=== PATIENT | female | born 1960 | race Caucasian/White ===

== ENCOUNTER → 2023-08-19 11:34 | Outpatient (REF) | payer MEDICARE, SELFPAY | LOC: HWRAD 11:34 | PROVIDERS: ATTENDING PHYSICIAN Internal Medicine Critical Care Medicine; FAMILY PHYSICIAN Internal Medicine | DX: R91.8 Other nonspecific abnormal finding of lung field (principal) | CPT/HCPCS: 71250 ==

== ENCOUNTER → 2023-10-28 06:22 | Day surgery (SDC) | payer MEDICARE, SELFPAY ==
[2023-10-28 07:38] LABS: Glucose - Point of Care 80 mg/dl (70-99)
== END ==
LOC: GI 06:22
PROVIDERS: ATTENDING PHYSICIAN Internal Medicine Gastroenterology
DX: Z12.11 Encounter for screening for malignant neoplasm of colon (principal); Z86.010 Personal history of colon polyps; K64.8 Other hemorrhoids; K57.30 Diverticulosis of large intestine without perforation or abscess without bleeding
CPT/HCPCS: G0105; 82962

== ENCOUNTER → 2023-11-03 08:40 | Outpatient (REF) | payer MEDICARE, SELFPAY | LOC: RAD 08:40 | PROVIDERS: ATTENDING PHYSICIAN Internal Medicine Gastroenterology; FAMILY PHYSICIAN Internal Medicine | DX: R11.0 Nausea (principal) | CPT/HCPCS: 76700; 78226; A9537 ==

== ENCOUNTER → 2023-12-27 09:52 | Outpatient (REF) | payer MEDICARE, SELFPAY | LOC: HWWDC 09:52 | PROVIDERS: ATTENDING PHYSICIAN Internal Medicine | DX: Z12.31 Encounter for screening mammogram for malignant neoplasm of breast (principal) | CPT/HCPCS: 77063; 77067 ==

== ENCOUNTER → 2024-02-23 08:54 | Outpatient (REF) | payer MEDICARE, SELFPAY | LOC: HWRAD 08:54 | PROVIDERS: ATTENDING PHYSICIAN Internal Medicine Critical Care Medicine; FAMILY PHYSICIAN Internal Medicine | DX: R91.8 Other nonspecific abnormal finding of lung field (principal) | CPT/HCPCS: 71250 ==

== ENCOUNTER → 2024-03-06 08:34 | Outpatient (REF) | payer MEDICARE, SELFPAY | LOC: HWRAD 08:34 | PROVIDERS: ATTENDING PHYSICIAN Internal Medicine | DX: R93.89 Abnormal findings on diagnostic imaging of other specified body structures (principal); E07.9 Disorder of thyroid, unspecified | CPT/HCPCS: 76536 ==

== ENCOUNTER → 2024-03-14 13:18 | Outpatient (REF) | payer MEDICARE, SELFPAY ==
[2024-03-14 13:44] VITALS: BP 142/87; BP_SYST 75
== END ==
LOC: RADI 13:18
PROVIDERS: ATTENDING PHYSICIAN Internal Medicine
DX: E04.1 Nontoxic single thyroid nodule (principal)
CPT/HCPCS: 88173; 10005

== ENCOUNTER 2024-09-03 23:07 | Inpatient (IN) | payer MEDICARE, SELFPAY ==
[2024-09-03] VITALS (9 sets, daily range): BP systolic 157–171; BP diastolic 78–98; BMI 36.8
[2024-09-03 16:52] LABS: % Basophils 0.4 % (0-2); % Eosinophils 1.6 % (0-6); % Immature Granulocytes 0.3 % (0-0.5); % Lymphocytes 25.4 % (20.5-51.1); % Monocytes 7.7 % (1.7-9.3); % Neutrophils 64.6 % (42.2-75.2); Absolute Eosinophils 0.2 10^3/uL (0-0.7); Absolute Lymphocytes 2.3 10^3/uL (1.2-3.4); Absolute Monocytes 0.7 10^3/uL (0.1-0.6); Absolute Neutrophils 5.9 10^3/uL (1.4-6.5); Hematocrit 39.1 % (37.0-47.0); Hemoglobin 12.6 g/dL (12.0-16.0); Mean Corp Hgb Conc. 32.2 g/dL (33.0-37.0); Mean Corpuscular Hgb 28.4 pg (27.0-31.0); Mean Corpuscular Volume 88.3 fL (81.0-99.0); Mean Platelet Volume 10.2 fL (7.4-10.4); Nucleated Red Blood Cells % 0 %; Platelet Count 263 10^3/uL (130-400); Red Blood Cell Count 4.43 10^6/uL (4.20-5.40); Red Cell Dist. Width 14.4 % (11.5-14.5); White Blood Cell Count 9.1 10^3/uL (4.8-10.8)
[2024-09-03 17:04] LABS: ALT (SGPT) 16 U/L (0-35); AST (SGOT) 20 U/L (14-36); Albumin 4.6 g/dl (3.5-5.0); Alkaline Phosphatase 84 U/L (38-126); Blood Urea Nitrogen 21 mg/dl (7-17); Calcium 9.4 mg/dl (8.4-10.2); Carbon Dioxide 32 mmol/L (22-30); Chloride 98 mmol/L (98-107); Glucose 96 mg/dl (70-99); Potassium 4.6 mmol/L (3.5-5.1); Sodium 140 mmol/L (135-145); Total Bilirubin 0.7 mg/dl (0.2-1.3); Total Protein 7.3 g/dl (6.3-8.2); eGFR 45.92
[2024-09-03 17:15] LABS: NT-proBNP 270 pg/ml; Troponin I < 0.012 ng/ml
[2024-09-03 17:39] LABS: COVID-19 Antigen Negative (Negative)
[2024-09-03] MEDS: DUONEB 3 ML INH (18:37)
[2024-09-03] MEDS: DECADRON 10 MG PO (18:37)
[2024-09-03 19:11] LABS: D-Dimer 0.42 ug/mlFEU (0.00-0.50)
--- NOTE | 2024-09-03 20:09 | ED.GENMED ---
History of Present Illness
General
Chief Complaint: Breathing Problem
Source: patient
Exam Limitations: none
Time Seen by Provider: 09/03/24 17:49
Nursing documentation reviewed up to this point in time: agreed with
History of Present Illness
History of Present Illness:
Patient to ED with complaint of SOB. States she developed cold symtoms on 07/13. Treated with OTC meds. SHe was then re-evaluated in Jul. States she started to feel better but cough remained. Progressively worsening SOB and worening cough. NOw
having difficulty with aDL's' due to SOB. Denies any cp/pressure. Denies fever/chills. Brought self to ED for eval. H asthma and COPD. SHe does not use home O2. Has albuterol inhaler which she typically uses as 'rescue' but reports now using
frequently throughout the day
Past History
Past History
ED Past Medical History: Asthma, COPD, GERD, HTN and NIDDM
Review of Systems
Review of Systems
Allergies reviewed?: Yes
All Other Systems: ROS reviewed and negative except as documented in HPI and ROS
Constitutional: Reports fatigue
EENT: Reports no symptoms
Respiratory: Reports cough and trouble breathing
Cardiac: Reports no symptoms
ABD/GI: Reports no symptoms
: Reports no symptoms
Musculoskeletal: Reports no symptoms
Skin: Reports no symptoms
Neurological: Reports weakness
Psychiatric: Reports no symptoms
Phy Exam
General Physical Exam
General Presentation: mild distress
General age: appears stated age
General Skin: warm and dry
General Habitus: normal
Cardiovascular Exam
Cardiovascular Exam: regular rate/rhythm and no edema
Pulmonary Exam
Pulmonary Exam: chest non tender and decreased breath sounds
Oxygen Status: oxygen 2 liters via NC (PUlse ox 91% RA at rest, 86% RA wtih ambulation)
Gastrointestinal Exam
Gastrointestinal Exam: normal bowel sounds, non tender, soft, no organomegaly, non distended and no cva tenderness
Musculoskeletal Exam
Musculoskeletal Exam: full ROM and neuro vasc intact
Skin Exam
Skin Exam: normal color, warm/dry and no rash
Psychiatric Exam
Psychiatric Exam: normal mood/affect
Scores
Heart Failure Risk
Heart Failure Risk Score: Not Applicable
Course
Orders/Labs/Results
Orders:
Orders
09/03/24 16:02
Electrocardiogram (*1) Urgent
Reason for Study: Other
Other Reason for Exam: Respiratory Distress
CR Chest - 2 Views Urgent
Comment:
Reason For Exam: respiratory distress
09/03/24 16:18
COVID-19 Antigen Urgent
Source: Nasal Swab
Complete Blood Count/With Diff Urgent
Comprehensive Metabolic Panel Urgent
NT-proBNP Urgent
Troponin I Urgent
Influenza A+B Rapid Molecular Urgent
GANESH Source: Nasal Swab
Specimen Description:
09/03/24 17:58
Dexamethasone Pf [Decadron] 10 mg PO NOW STA
Ipratropium/Albuterol Sulfate [Duoneb] 3 ml INH R NOW STA
09/03/24 18:36
D-Dimer Urgent
09/03/24 19:06
RSV [Respiratory Syncytial Virus] Urgent
GANESH Source: Nasal Swab
Specimen Description:
Date Specimen was Collected: 09/03/24
Time Specimen was Collected: 19:02
09/03/24 19:13
Oxygen Therapy [O2 Therapy] [RESP] Urgent
Nasal Cannula Liter Flow: 2 LPM
Titrate/Wean O2 to maintain O2 sat greater than (%): 93
Contact provider if nasal cannula O2 requirement > 6 liters: Yes
09/03/24 22:49
Admit/Transfer Patient As Directed
Co-Sign Provider:
Level of Care: Inpatient admission
Assign to:: Medical/Surgical
Physician / Group: [email or web address]
Diagnosis: AE COPD
Reason for Hospitalization: AE COPD
Expected length of stay greater than two midnights?: Yes
ELOS- Estimated Length of Stay in days: 3
I certify the patient meets the requirements for IP care: Yes
09/03/24 22:51
Code Status As Directed
Resuscitation Status: Full Code
09/03/24 22:57
Procalcitonin Routine
PCT Algorithmm Indication: Respiratory
09/04/24 00:44
Dextrose 50%-Water [Dextrose 50% Syringe] 12.5 grams IV [id number] PRN
Glucagon [GlucaGen] 1 mg IM PRN PRN
Ipratropium/Albuterol Sulfate [Duoneb] 3 ml INH R Q4HPRN PRN
Lorazepam [Ativan] 0.5 mg PO DAILYPRN PRN
09/04/24 00:44
Activity As Directed
Activity Level: With Assistance
Bedside Glucose Monitoring As Directed
Frequency: AC&HS
Additional Instructions:: Change to q6h if pt on TPN, tube feeding or not eating
Intake/ Output As Directed
Frequency: Per unit guidelines
Vital Signs As Directed
Frequency: Per unit guidelines
Copd Education [RESP] Routine
DX Deep Vein Thrombosis Video Routine
09/04/24 05:35
Basic Metabolic Panel IN AM
Complete Blood Count/With Diff IN AM
Glycohemoglobin (HgbA1c) IN AM
09/04/24 Breakfast
Cholesterol Lowering
At Your Request: Full Participation
Does patient need a safe tray?: No
Cholesterol Lowering: Sodium, 2 Gram
1999 CHO Diabetic
Dexamethasone Sod Phosphate [Decadron] 4 mg IV Q12H
09/04/24 07:30
Insulin Aspart Corrective Low [Novolog Flexpen-Low Resistance] See Protocol SC AC
09/04/24 08:00
Atorvastatin [Lipitor] 40 mg PO DAILY
Carvedilol [Coreg] 25 mg PO BID
Clopidogrel Bisulfate [Plavix] 75 mg PO DAILY
Ipratropium/Albuterol Sulfate [Duoneb] 3 ml INH R QID
Losartan [Cozaar] 100 mg PO DAILY
METFORMIN HCl [Glucophage] 500 mg PO BID AT 0800,1700
Pantoprazole [Protonix] 40 mg PO BID
09/04/24 18:00
Enoxaparin Sodium [Lovenox] 40 mg SC QPM
09/04/24 22:00
Escitalopram Oxalate [Lexapro] 5 mg PO HS
09/05/24 08:00
Furosemide [Lasix] 20 mg PO Q48H
09/08/24 06:00
Alendronate Sodium [Fosamax] 70 mg PO SA@0600
Abnormal Lab Results
09/03/24
16:18
MCHC 32.2 L g/dL
(33.0-37.0)
Absolute Monos (auto) 0.7 H 10^3/uL
(0.1-0.6)
Carbon Dioxide 32 H mmol/L
(22-30)
BUN 21 H mg/dl
(7-17)
Creatinine 1.3 H mg/dL
(0.6-1.0)
09/03/24 16:18
09/03/24 16:18
Vital Signs
Initial and Last Documented VS:
Initial Vital Signs
Temp Pulse BP Pulse Ox
99.3 F 85 171/98 92
09/03/24 16:00 09/03/24 16:00 09/03/24 16:00 09/03/24 16:00
Last Documented Vital Signs
Temp Pulse Resp BP Pulse Ox
98.1 F 87 16 176/94 95
09/05/24 07:48 09/05/24 11:49 09/05/24 11:49 09/05/24 07:48 09/05/24 11:49
*Radiology
Radiology exam reviewed: radiology read reviewed
*Pulse Oximetry
Patient hypoxic: yes
*Critical Care Note
Total Time (30-74mins, 75-104mins- exclusive of procedures): Not Applicable
Update Note
Update Note:
Patient to ED with complaint of worsening SOB since 07/13. Dyspnea now hindering ADL's. SHe remains afebrile. Lab, CXR results reviewed with her. Reprts improvement in chest symptoms after duoneb and decadron.PUlse ox 88% RA with ambulation, 92%
at rest. Placed on 2L NC. Pulse ox holding at 95% at rest. WIll admit to hospitalist exacermignontion COPD.
ED Attending Note
-
Portions of this chart may have been created with voice recognition software.� Occasional wrong word or��sound alike� substitutions may have occurred due to the inherent limitations of voice recognition software.
Discharge Plan
Departure
Patient Disposition: Admit
Date of Disposition: 09/03/24
Time of Disposition: 21:54
Presentation/result/management discussed w/ accepting MD/DO: Hospitalist
Patient with high blood pressure during this ER visit?: Yes
Condition: Fair
Covid-19: Not Applicable
Discharge Problem:
COPD exacerbation, Hypoxemia
Interventions
Interventions:
*Risk Screen - Suicide Last Done: 09/03/24 18:30
ED- Fall Risk Assessment Last Done: 09/03/24 18:30
*Nursing Disposition Last Done: 09/04/24 13:20
ED- Cardiac Assessment Last Done: 09/03/24 19:14
ED- Pulmonary Assessment Last Done: 09/03/24 19:14
Discharge Date and Time
Discharge Date/Time: 09/04/24 13:21
--- NOTE | 2024-09-03 22:43 | HPS.HSE ---
Family Physician
-
Family Physician: Ana Wynne DO
Chief Complaint
-
SoB with exertion
History of Present Illness
HPI
63F brought self to ER with HX Asthma, COPD, HTN, T2DM seen at ER:
- reports SOB
- onset of URTI /common cold like symptoms on 07/13 treated with OTC meds.
- she started to feel better but cough remained.
- Progressively worsening SOB and worsening cough
- SoB with ADls
- Frequent use of rescue albuterol inhale and using thru out the day
POx 91% RA at rest, 86% RA wtih ambulation
ROS;
Denies any cp/pressure. Denies fever/chills.
Medical History
Past Medical History
Past Medical History: Reports Asthma, COPD, HTN, Hypercholesterolemia, IDDM and NIDDM
Past Surgical History: Reports None
Social History
Tobacco: Non-smoker
Alcohol: None
Family History
Family History: Not pertinent
Allergies / Home Medications
Allergies reflects when Allergies were last updated in [facility].
Home Medications with original date entered in [facility]
Allergy/Medication List:
Allergies
Allergy/AdvReac Type Severity Reaction Status Date / Time
No Known Allergies Allergy Verified 03/14/24 13:46
Home Medications
clopidogrel 75 mg tablet (Plavix) 75 mg PO DAILY 03/14/24
albuterol sulfate 90 mcg/actuation aerosol inhaler 2 puff inhalation R Q6HPRN PRN sob 09/03/24
alendronate 70 mg tablet 70 mg PO SA 09/03/24
atorvastatin 40 mg tablet 40 mg PO DAILY 09/03/24
carvedilol 25 mg tablet 25 mg PO BID 09/03/24
escitalopram oxalate 10 mg tablet 5 mg PO HS 09/03/24
furosemide 20 mg tablet 20 mg PO Q48H 09/03/24
insulin glargine 100 unit/mL (3 mL) subcutaneous pen (Lantus Solostar U-100 Insulin) 10 unit SC HS 09/03/24
lorazepam 0.5 mg tablet 0.5 mg PO DAILYPRN PRN anxiety 09/03/24
losartan 100 mg tablet 100 mg PO DAILY 09/03/24
metformin 500 mg tablet 500 mg PO BID 09/03/24
omeprazole 40 mg capsule,delayed release 40 mg PO BID 09/03/24
semaglutide 1 mg/dose (4 mg/3 mL) subcutaneous pen injector (Ozempic) 1 mg SC SA 09/03/24
tiotropium 2.5 mcg-olodaterol 2.5 mcg/actuation mist for inhalation (Stiolto Respimat) 2 puff inhalation R BID 09/03/24
Review of Systems
-
Constitutional: Reports No Symptoms
EENT: Reports No Symptoms
Cardiac: Reports No Symptoms
Abdomen/GI: Reports No Symptoms
: Reports No Symptoms
Musculoskeletal: Reports No Symptoms
Skin: Reports No Symptoms
Neurological: Reports No Symptoms
Endocrine: Reports No Symptoms
Hematologic/Lymphatic: Reports No Symptoms
Psych: Reports No Symptoms
Physical Exam
Vital Signs
Vital Signs
Temp Pulse Resp BP Pulse Ox
98.2 F 89 20 166/87 92
09/03/24 19:10 09/03/24 21:16 09/03/24 21:16 09/03/24 22:06 09/03/24 22:07
Physical Exam
General: Well Developed, Well Nourished and No Apparent Distress
HEENT: NormoCephalic, Moist mucous membranes and Atraumatic
Respiratory: Other (decreased breath sounds)
Cardiac: S1/S2 and Regular Rhythm; No Murmur or Rub
GI: Soft, Non Tender, Non Distended and Normal Bowel Sounds; No Organomegaly
Rectal: Deferred by Provider
Musculoskeletal: No Clubbing, No Cyanosis and No Edema
Skin: No Rash
Neuro: Nonfocal/grossly intact
Laboratory Results
-
09/03/24 16:18
09/03/24 16:18
Laboratory Results
Total Bilirubin 0.7 mg/dl (0.2-1.3) 09/03/24 16:18
AST 20 U/L (14-36) 09/03/24 16:18
ALT 16 U/L (0-35) 09/03/24 16:18
Alkaline Phosphatase 84 U/L (38-126) 09/03/24 16:18
Troponin I < 0.012 ng/ml 09/03/24 16:18
Data Reviewed
-
Diagnostic Radiology: Report Reviewed by me
Lab Data: Labs Reviewed by me
Old Records: Reviewed
Impression/Plan
-
Reviewed VS: afebrile BP 170/90 POx 93
PE
On O2 2 liters via NC
Gen: mild distress
HEENT: anicteric
Neck: supple
Lungs: decreased breath sounds
Cor: RRR S1 S2
Abdomen: soft benign abdomen
CHEF ASSISTANT: AAO3, NFND
MS: no edema
Psych: nl mood
Data
nl CBC
nl D Dimer
Cr 1.3
NEG TPNI
pro BNP 270
NEG Covid
CXR
- Focal parenchymal opacity involving the LLL with slight elevation of the posterior aspect of the left hemidiaphragm.
- Main differential considerations of atelectasis and/or pneumonia.
- Mild blunting of the left posterior costophrenic angle, suggesting a minimal left pleural effusion.
- The right lung appears radiographically clear.
No prior hospitalist admission:
ASSESSMENT & PLAN
Focal parenchymal opacity involving the LLL
PNA vs Atx
- check PCT'
- hold of ABx for now
AE COPD
- agree with IV Decadron
- cont Duo Nebs
- O2 support : keep PO2 > 93
T2DM
- c/w BUTT SAWYER Lantus and Metformin
- add ISS low
HLD
- cont Atorvastatin
Essential HTN
- on Carvedilol, Frusemide
DVT Px: LMWH
Code: Ful code
IP MS
[2024-09-03 23:30] LABS: Procalcitonin < 0.05 ng/ml (0.0-0.25)
[2024-09-04] VITALS: BP 150/78
[2024-09-04 01:00] VITALS: BP 145/79
[2024-09-04] MEDS: DECADRON 4 MG IV ×2 (05:34→17:06)
[2024-09-04] MEDS: TYLENOL 650 MG PO (05:55)
[2024-09-04 06:33] LABS: % Immature Granulocytes 0.3 % (0-0.5); % Lymphocytes 10.8 % (20.5-51.1); % Monocytes 1.3 % (1.7-9.3); % Neutrophils 87.6 % (42.2-75.2); Absolute Lymphocytes 0.9 10^3/uL (1.2-3.4); Absolute Monocytes 0.1 10^3/uL (0.1-0.6); Absolute Neutrophils 6.9 10^3/uL (1.4-6.5); Hematocrit 38.6 % (37.0-47.0); Hemoglobin 12.5 g/dL (12.0-16.0); Mean Corp Hgb Conc. 32.4 g/dL (33.0-37.0); Mean Corpuscular Hgb 28.6 pg (27.0-31.0); Mean Corpuscular Volume 88.3 fL (81.0-99.0); Mean Platelet Volume 10.5 fL (7.4-10.4); Nucleated Red Blood Cells % 0 %; Platelet Count 241 10^3/uL (130-400); Red Blood Cell Count 4.37 10^6/uL (4.20-5.40); White Blood Cell Count 7.9 10^3/uL (4.8-10.8)
[2024-09-04 07:05] LABS: Blood Urea Nitrogen 24 mg/dl (7-17); Carbon Dioxide 28 mmol/L (22-30); Chloride 102 mmol/L (98-107); Estimated Creatinine Clearance 58 ml/min; Glucose 140 mg/dl (70-99); Potassium 4.4 mmol/L (3.5-5.1); Sodium 140 mmol/L (135-145); eGFR 56.11
[2024-09-04] MEDS: DUONEB 3 ML INH ×4 (07:56→20:37)
[2024-09-04 08:21] LABS: Glucose - Point of Care 140 mg/dl (70-99)
[2024-09-04 08:30] VITALS: BP 176/92
--- NOTE | 2024-09-04 08:55 | W.PN.HOSP.TC ---
Addendum entered and electronically signed by Medhat Sierra MD 09/04/24 14:11:
Discussed with Dr. Paul. Patient has a history of CKD stage III with a creatinine of 1.32 one 08/08/24
Original Note:
Today's Communication/Plan
-
Wean oxygen as tolerated
Continue steroids
Possibly can be switched to p.o. tomorrow if feeling better
Antibiotics
Assessment / Plan
Assessment / Plan
63-year-old man with shortness of breath
Chest x-ray reviewed by me-left lower lobe pneumonia with minimal left pleural effusion
ECG-normal sinus rhythm. No ischemia
CVS: S1-S2 normal
Chest: CTA B/L
Abdomen: Soft, NT / Bowel sounds present
Extremities: No edema, normal pulses
# Pneumonia-treat as community-acquired pneumonia
Acute hypoxic respiratory insufficiency
Asthma/COPD exacerbation
Influenza, COVID screen and RSV negative
DDImer 0.42
Continue Spiriva or equivalent and as needed albuterol inhaler
IV steroids, antibiotics - Doxy
Mucolytics
Nebulizer treatments
Oxygen supplementation to keep sats above 92
# Diabetes-hemoglobin A1c pending
Continue Lantus and metformin
Patient is also on Ozempic on Saturdays
Accu-Cheks and sliding scale coverage
Watch sugars with steroids
# Hypertension-continue carvedilol, losartan
# Hyperlipidemia-continue atorvastatin
# History of CVA-continue Plavix and statin
# Anxiety-continue as needed lorazepam, Lexapro
# Obesity-on Ozempic 1 mg on Saturdays. Patient has been losing weight
# Diverticulosis/internal hemorrhoids
# Bilateral pulmonary nodules-needs outpatient follow-up
# CKD- Medullary sponge kidney per ultrasound- Reached out to to see what her baseline creat is.
# Cholelithiasis
# DVT prophylaxis-Lovenox
# Full code
Anticipated Discharge: Within 24 hours
Subjective/Interval History
-
Date of Service: September 04, 2024
Objective Data
-
Labs:
Laboratory Results
09/04/24
05:35
WBC 7.9
Hgb 12.5
Hct 38.6
Plt Count 241
Sodium 140
Potassium 4.4
Chloride 102
Carbon Dioxide 28
BUN 24 H
Creatinine 1.1 H
Glucose 140 H
Calcium 9.0
Vital Signs:
Vital Signs
Temp Pulse Resp BP Pulse Ox
98.2 F 78 20 150/78 94
09/03/24 19:10 09/04/24 08:02 09/04/24 08:02 09/04/24 00:00 09/04/24 08:02
[2024-09-04] MEDS: NOVOLOG FLEXPEN-LOW RESISTANCE SC ×2 (09:09→17:56)
[2024-09-04] MEDS: PLAVIX 75 MG PO (09:09)
[2024-09-04] MEDS: COZAAR 100 MG PO (09:09)
[2024-09-04] MEDS: LIPITOR 40 MG PO (09:10)
[2024-09-04] MEDS: COREG 25 MG PO ×2 (09:10→19:48)
[2024-09-04] MEDS: GLUCOPHAGE 500 MG PO ×2 (09:10→17:05)
[2024-09-04] MEDS: PROTONIX 40 MG PO ×2 (09:10→19:48)
[2024-09-04 09:22] LABS: Glycohemoglobin (HgbA1c) 5.7 % (4.0-5.6)
[2024-09-04] MEDS: MUCINEX 600 MG PO ×2 (10:56→19:48)
[2024-09-04] MEDS: VIBRAMYCIN 100 MG PO ×2 (10:56→19:48)
[2024-09-04 13:22] VITALS: BP 154/91; BMI 35.9
[2024-09-04 13:37] LABS: Glucose - Point of Care 200 mg/dl (70-99)
[2024-09-04] MEDS: NOVOLOG FLEXPEN-LOW RESISTANCE 2 UNITS SC (14:55)
[2024-09-04 16:00] VITALS: BP 138/78
[2024-09-04] MEDS: LOVENOX 40 MG SC (17:23)
[2024-09-04 17:48] LABS: Glucose - Point of Care 109 mg/dl (70-99)
[2024-09-04 21:51] LABS: Glucose - Point of Care 150 mg/dl (70-99)
[2024-09-04] MEDS: LANTUS 0.1 UNITS SC (22:02)
[2024-09-04] MEDS: LEXAPRO 5 MG PO (22:02)
[2024-09-04 23:15] VITALS: BP 157/87
--- NOTE | 2024-09-05 02:39 | DOWNTIME ---
There was a [employer] Downtime on 09/05/2024 from 0100 to 09/05/2023 at 0235 . Downtime documentation of patient's care, including medication administrations, has been reconciled in the electronic record per guidelines. Refer to the
patient's paper chart under the miscellaneous tab to see printed paper medication records and downtime forms.
[2024-09-05] MEDS: DUONEB 3 ML INH ×3 (03:01→11:41)
[2024-09-05] MEDS: DECADRON 4 MG IV (06:27)
[2024-09-05 07:16] LABS: Glucose - Point of Care 116 mg/dl (70-99)
[2024-09-05 07:48] VITALS: BP 176/94
--- NOTE | 2024-09-05 08:17 | W.PN.HOSP.TC ---
Today's Communication/Plan
-
dc
Assessment / Plan
Assessment / Plan
63yo F with PMHX of DUSTY on CPAP, HTN, osteoporosis, HLD, DM, CAD, anxiety, COPD came with cough and generalized malaise over past 4 weeks. She usually seeing for her pulmonary needs. She did not have any recent change in medications.HEr
cough and weakness persisted since her cold that she had 4-5 weeks before current admission. Rapidly improved on steroids. Remained off O2. Recommended to continue treatment at home and schedule her visit to ror engineer [facility]RISTINE. Will benefit from
added ICS. Medically stable for d/c
A/P:
#Malaise, cough 2/2 post-viral COPD exacerbation
Procalcitonin low
proBNP <400
inhalers and taper down steroids
FOllow with pulm as outpatient
XR with most likely atelectasis and minimal effusion, however due to aforementioned labs - no concern for overt CHF or bacterial pneumonia
DOxy for antiinflammatory properties
#CAD stable
trop undetectable
EKG non-ischemic
#DM type 2 with neuropathy
cont home meds
DM diet
#Essential HTN
#HLD
#Anxiety d/o
#DUSTY
#Osteoporosis
cont home meds
DVT ppx lovenox
FUll code
I have spent at least 39min reviewing chart, test results, communication with consultants and direct patient care
Anticipated Discharge: Today
Subjective/Interval History
-
Date of Service: September 05, 2024
Objective Data
-
Labs:
Laboratory Results
09/05/24
07:18
Sodium Pending
Potassium Pending
Chloride Pending
Carbon Dioxide Pending
BUN Pending
Creatinine Pending
Glucose Pending
Calcium Pending
Vital Signs:
Vital Signs
Temp Pulse Resp BP Pulse Ox
98.1 F 84 18 176/94 95
09/05/24 07:48 09/05/24 07:48 09/05/24 07:48 09/05/24 07:48 09/05/24 07:48
I&O
09/04/24 09/05/24 09/06/24
06:59 06:59 06:59
Intake Total 840 / 840
Balance 840 / 840
Review of Systems
-
History Source: Patient
All other systems: Reviewed and negative
Respiratory: Reports Cough
Physical Exam
-
General: Comfortable
Respiratory: Clear to Auscultation; Negative Wheezes
Cardiac: Regular Rhythm
Neuro: Awake, Alert, Oriented and AO x 3
Psych: Calm
[2024-09-05] MEDS: NOVOLOG FLEXPEN-LOW RESISTANCE SC ×2 (08:20→13:16)
[2024-09-05] MEDS: VIBRAMYCIN 100 MG PO (08:21)
[2024-09-05] MEDS: GLUCOPHAGE 500 MG PO (08:21)
[2024-09-05] MEDS: PROTONIX 40 MG PO (08:21)
[2024-09-05] MEDS: MUCINEX 600 MG PO (08:21)
[2024-09-05] MEDS: LIPITOR 40 MG PO (08:21)
--- NOTE | 2024-09-05 08:21 | W.DCSUMMARY ---
Discharge Summary
Discharge Data
Date of Admission: 09/03/24
Date of Discharge: 09/05/24
-
Pending Results: No
Hospital Course
63yo F with PMHX of DUSTY on CPAP, HTN, osteoporosis, HLD, DM, CAD, anxiety, COPD came with cough and generalized malaise over past 4 weeks. She usually seeing for her pulmonary needs. She did not have any recent change in medications.HEr
cough and weakness persisted since her cold that she had 4-5 weeks before current admission. Rapidly improved on steroids. Remained off O2. Recommended to continue treatment at home and schedule her visit to superintendent transportation CHRISTINE. Will benefit from
added ICS. Medically stable for d/c
I have spent at least 39min reviewing chart, test results, communication with consultants and direct patient care
Patient was managed for:
#Malaise, cough 2/2 post-viral COPD exacerbation
#DM type 2 with neuropathy
#CAD stable
#Essential HTN
#HLD
#Anxiety d/o
#DUSTY
#Osteoporosis
Discharge Plan
-
Patient Disposition: Home (Routine Discharge)
Discharge Diagnosis/Procedures: COPD exacerbation
Diet: Low Sodium and Diabetic, Carb Controlled
Activity: No restrictions
Driving Restrictions: As prior to admission
Others Tests: Repeat chest x-ray 4 to 6 weeks
Activity Restrictions/Additional Instructions:
Bilateral pulmonary nodules. You need to follow-up with outpatient superintendent transportation. Lung function testing as outpatient
Referrals:
Ana Wynne DO [Family Provider] - in less than 1 week
Javy Fuentes MD [Active] - in less than 1 week
Prescriptions:
New
prednisone 10 mg Tablet
See Rx Instructions .ROUTE .COMPLEX Qty: 30 0RF
Rx Instructions:
Take By Mouth:
40 mg daily x3 days, 30 mg daily x3 days,
20 mg daily x3 days, 10 mg daily x3 days.
fluticasone propionate 220 mcg/actuation Hfa Aerosol Inhaler
2 puff inhalation R BID Qty: 12 0RF
guaifenesin 600 mg Tablet Extended Release 12hr
600 mg PO Q12 Qty: 30 0RF
doxycycline hyclate 100 mg Capsule
100 mg PO Q12 Qty: 10 0RF
Continued
clopidogrel [Plavix] 75 mg Tablet
75 mg PO DAILY
atorvastatin 40 mg Tablet
40 mg PO DAILY
metformin 500 mg Tablet
500 mg PO BID
carvedilol 25 mg Tablet
25 mg PO BID
alendronate 70 mg Tablet
70 mg PO SA
omeprazole 40 mg Capsule,Delayed Release(Dr/Ec)
40 mg PO BID
lorazepam 0.5 mg Tablet
0.5 mg PO DAILYPRN PRN (Reason: anxiety)
furosemide 20 mg Tablet
20 mg PO Q48H
albuterol sulfate 90 mcg/actuation Hfa Aerosol Inhaler
2 puff INHALATION R Q6HPRN PRN (Reason: sob)
losartan 100 mg Tablet
100 mg PO DAILY
escitalopram oxalate 10 mg Tablet
5 mg PO HS
insulin glargine [Lantus Solostar U-100 Insulin] 100 unit/mL (3 mL) Insulin Pen
10 unit SC HS
Stiolto Respimat 2.5-2.5 mcg/actuation Mist
2 puff INHALATION R BID
Ozempic 1 mg/dose (4 mg/3 mL) Pen Injector
1 mg SC SA
Discharge Date and Time
Print Language: VENEZUEL[place]
[2024-09-05] MEDS: COREG 25 MG PO (08:22)
[2024-09-05] MEDS: COZAAR 100 MG PO (08:22)
[2024-09-05] MEDS: PLAVIX 75 MG PO (08:22)
[2024-09-05] MEDS: LASIX 20 MG PO (08:22)
[2024-09-05 09:03] LABS: Blood Urea Nitrogen 36 mg/dl (7-17); Calcium 9.5 mg/dl (8.4-10.2); Carbon Dioxide 24 mmol/L (22-30); Chloride 100 mmol/L (98-107); Estimated Creatinine Clearance 58 ml/min; Glucose 118 mg/dl (70-99); Potassium 4.3 mmol/L (3.5-5.1); Sodium 138 mmol/L (135-145); eGFR 56.11
--- NOTE | 2024-09-05 09:28 | CM ---
CM reviewed chart and noted dc order
Call to pt [phone]
No dc needs noted
She is indep in room and has WW at home if needed
Her father will transporting her home
Pt noted she was advised by her pharmacy that one of her meds will be $[address] Velez with recs to follow up with her pulm for alternative
IMM verbally reviewed bedside- copy provided
Discharge Disposition- home, no needs, father will transport home
[2024-09-05] MEDS: DELTASONE 40 MG PO (12:21)
[2024-09-05 13:07] LABS: Glucose - Point of Care 108 mg/dl (70-99)
== END 2024-09-05 13:57 | disposition home or self-care (01) | DRG 191 ==
LOC: 1 ACUTE 23:07
PROVIDERS: Emergency Medicine; Hospitalist; Nurse Practitioner; ADMITTING PHYSICIAN Internal Medicine; ATTENDING PHYSICIAN Internal Medicine; EMERGENCY PHYSICIAN Emergency Medicine; FAMILY PHYSICIAN Internal Medicine
DX: J44.1 Chronic obstructive pulmonary disease with (acute) exacerbation (principal); J90 Pleural effusion, not elsewhere classified; J98.11 Atelectasis; I10 Essential (primary) hypertension; N18.30 Chronic kidney disease, stage 3 unspecified; I25.10 Atherosclerotic heart disease of native coronary artery without angina pectoris; E11.40 Type 2 diabetes mellitus with diabetic neuropathy, unspecified; E78.00 Pure hypercholesterolemia, unspecified; F41.9 Anxiety disorder, unspecified; G47.33 Obstructive sleep apnea (adult) (pediatric); M81.0 Age-related osteoporosis without current pathological fracture; Z79.4 Long term (current) use of insulin; Z11.52 Encounter for screening for COVID-19; Z79.899 Other long term (current) drug therapy
CPT/HCPCS: 71046; 80048; 80053; 82962; 83036; 83880; 84145; 84484; 85025; 85379; 87502; 87807; 87811; 93005; 94640; 99285

== ENCOUNTER 2024-09-19 18:01 | Emergency (ER) | payer MEDICARE, SELFPAY ==
[2024-09-19 18:03] VITALS: BP 163/95
[2024-09-19 19:17] VITALS: BMI 36.5
--- NOTE | 2024-09-19 19:20 | ED.GENMED ---
History of Present Illness
General
Chief Complaint: Flank Pain
Source: patient
Exam Limitations: none
Time Seen by Provider: 09/19/24 18:53
Nursing documentation reviewed up to this point in time: agreed with
History of Present Illness
History of Present Illness:
63-year-old female presents to the ER complaining of pain to right posterior back. Patient reports she was hospitalized in August for COPD exacerbation and bronchitis. She had a lot of' lung pain from coughing,' at that time. She does report it
improved however 5 days ago she started pain to her right posterior back. She reports it hurts to take a deep breath and she cannot fully get a deep breath. She was not sure because the location of it was her kidney stone pain. She denies any
hematuria. She denies any abdominal pain nausea vomiting. She denies any recent fever or chills. She has on Plavix and prior history of PE DVT.
Past History
Past History
ED Past Medical History: Asthma, COPD, GERD, HTN and NIDDM
Review of Systems
Review of Systems
Allergies reviewed?: Yes
All Other Systems: ROS reviewed and negative except as documented in HPI and ROS
Constitutional: Reports no symptoms
Respiratory: Reports cough and other (Pain to right posterior rib area)
Cardiac: Reports no symptoms
ABD/GI: Reports no symptoms
Musculoskeletal: Reports no symptoms
Skin: Reports no symptoms
Neurological: Reports no symptoms
Psychiatric: Reports no symptoms
Phy Exam
General Physical Exam
General Presentation: no apparent distress
General age: appears stated age
General Skin: warm and dry
General Habitus: normal
General Mental: alert
General Hydration: appears well hydrated
Cardiovascular Exam
Cardiovascular Exam: regular rate/rhythm, no murmur and normal peripheral pulses
Pulmonary Exam
Pulmonary Exam: lungs clear and no respiratory distress
Gastrointestinal Exam
Gastrointestinal Exam: normal bowel sounds, non tender and soft
Neurological Exam
Neurological Exam: alert and oriented x3
Musculoskeletal Exam
Musculoskeletal Exam: full ROM
Skin Exam
Skin Exam: normal color and warm/dry
Psychiatric Exam
Psychiatric Exam: normal mood/affect
Course
Orders/Labs/Results
Orders:
Orders
09/19/24 19:19
Complete Blood Count/With Diff Urgent
Comprehensive Metabolic Panel Urgent
Urinalysis Reflex To Culture Urgent
Date Specimen was Collected: 09/19/24
Time Specimen was Collected: 18:24
Urine Microscopic Reflex Cult Urgent
Urine Culture Urgent
GANESH Source: U
Specimen Description:
Date Specimen was Collected: 09/19/24
Time Specimen was Collected: 18:24
09/19/24 19:20
Cardiac Monitoring- Treatment ONCE
IV Insert/Care/Rem.- Treatment PRN
09/19/24 19:24
D-Dimer Urgent
09/19/24 19:59
CT Abd/pel Without Iv Or Oral Urgent
Comment:
Reason For Exam: r flank pain
Chest [CR Chest - 2 Views ] Urgent
Comment:
Reason For Exam: pain with deep breath right posterior lung
09/19/24 20:02
Acetaminophen [Tylenol] 1,000 mg PO NOW STA
09/19/24 21:50
CefTRIAXone [Rocephin] 1,000 mg IV NOW STA
Abnormal Lab Results
09/19/24 09/19/24
19:19 19:24
WBC 14.7 H 10^3/uL
(4.8-10.8)
MCHC 31.7 L g/dL
(33.0-37.0)
RDW 15.0 H %
(11.5-14.5)
Abs Immat Gran (auto) 0.1 H 10^3/uL
(0-0.05)
Absolute Neuts (auto) 10.7 H 10^3/uL
(1.4-6.5)
Absolute Monos (auto) 1.1 H 10^3/uL
(0.1-0.6)
Lymphocytes % 18.3 L %
(20.5-51.1)
D-Dimer 0.52 H ug/mlFEU
(0.00-0.50)
Carbon Dioxide 31 H mmol/L
(22-30)
BUN 29 H mg/dl
(7-17)
Creatinine 1.1 H mg/dL
(0.6-1.0)
Glucose 124 H mg/dl
(70-99)
ALT 48 H U/L
(0-35)
Total Protein 5.9 L g/dl
(6.3-8.2)
Albumin 3.4 L g/dl
(3.5-5.0)
Leukocyte Esterase Rfl 3+ A
(Negative)
Urine WBC (Reflex) >100 A /HPF
(0-5)
Urine Bacteria (Reflex) Many A
(Negative)
Urine Albumin (Reflex) 1+ A
(Neg - Trace)
09/19/24 19:19
09/19/24 19:19
Vital Signs
Initial and Last Documented VS:
Initial Vital Signs
Temp Pulse Resp BP Pulse Ox
98.1 F 89 16 163/95 95
09/19/24 18:03 09/19/24 18:03 09/19/24 18:03 09/19/24 18:03 09/19/24 18:03
Last Documented Vital Signs
Temp Pulse Resp BP Pulse Ox
98.1 F 85 23 146/86 92
09/19/24 18:03 09/19/24 22:15 09/19/24 22:15 09/19/24 22:00 09/19/24 22:15
Wallpaperer consulted with Physician
Wallpaperer consulted with physician?: Yes
Name of Physician Consulted: Benjy
MDM/Problems Addressed
Differential Diagnosis Includes:
Not limited to PE muscle pain renal colic
MDM/Problems Addressed:
Patient is a 63-year-old female who presented to the ER complaining of pain to right posterior rib area/back worse with taking a deep breath. She reports she is having difficulty using her inhalers and taking a deep breath while doing so. She is
on Plavix. She had similar pain when she had bronchitis several weeks ago however that improved symptoms worsened again 5 days ago.
At the same time she reports that this does feel possibly similar to her kidney stone she had years ago.
D-dimer age-adjusted is normal lungs are clear no wheezing nonhypoxic nontachycardic.
At rest laying in the reclined supine position patient is feeling better will check chest x-ray and order CT abdomen to rule out kidney stone
CAT scan shows numerous small calcifications of the nodule both kidneys compatible with medullary nephrolithiasis there is no evidence for ureteral calculus bilaterally no significant ureteral pelvicalyceal dilatation.
Patient's urine shows greater than 100 white blood cells
*Critical Care Note
Total Time (30-74mins, 75-104mins- exclusive of procedures): Not Applicable
ED Attending Note
-
Portions of this chart may have been created with voice recognition software.� Occasional wrong word or��sound alike� substitutions may have occurred due to the inherent limitations of voice recognition software.
Discharge Plan
Departure
Patient Disposition: Home (Routine Discharge)
Date of Disposition: 09/19/24
Time of Disposition: 22:34
Patient with high blood pressure during this ER visit?: Yes
Condition: Fair
Covid-19: Not Applicable
Discharge Problem:
Pyelonephritis
Instructions: Urinary tract infections in adults, BLOOD PRESSURE
Prescriptions:
New
cefdinir 300 mg capsule
300 mg PO BID Qty: 28 0RF
No Action
clopidogrel [Plavix] 75 mg Tablet
75 mg PO DAILY
atorvastatin 40 mg Tablet
40 mg PO DAILY
metformin 500 mg Tablet
500 mg PO BID
carvedilol 25 mg Tablet
25 mg PO BID
alendronate 70 mg Tablet
70 mg PO SA
omeprazole 40 mg Capsule,Delayed Release(Dr/Ec)
40 mg PO BID
lorazepam 0.5 mg Tablet
0.5 mg PO DAILYPRN PRN (Reason: anxiety)
furosemide 20 mg Tablet
20 mg PO Q48H
albuterol sulfate 90 mcg/actuation Hfa Aerosol Inhaler
2 puff INHALATION R Q6HPRN PRN (Reason: sob)
losartan 100 mg Tablet
100 mg PO DAILY
escitalopram oxalate 10 mg Tablet
5 mg PO HS
insulin glargine [Lantus Solostar U-100 Insulin] 100 unit/mL (3 mL) Insulin Pen
10 unit SC HS
Stiolto Respimat 2.5-2.5 mcg/actuation Mist
2 puff INHALATION R BID
Ozempic 1 mg/dose (4 mg/3 mL) Pen Injector
1 mg SC SA
prednisone 10 mg Tablet
See Rx Instructions .ROUTE .COMPLEX Qty: 30 0RF
Rx Instructions:
Take By Mouth:
40 mg daily x3 days, 30 mg daily x3 days,
20 mg daily x3 days, 10 mg daily x3 days.
guaifenesin 600 mg Tablet Extended Release 12hr
600 mg PO Q12 Qty: 30 0RF
doxycycline hyclate 100 mg Capsule
100 mg PO Q12 Qty: 10 0RF
Pulmicort Flexhaler 180 mcg/actuation aerosol powdr breath activated
1 inh inhalation BID Qty: 1 0RF
Referrals:
Ana Wynne DO [Family Provider] -
Activity Restrictions/Additional Instructions:
As discussed you have a kidney infection. You are given 1 dose of IV antibiotics here in the ER and a prescription was sent to your pharmacy. Take twice daily for the next 14 days. Stay well-hydrated. Follow-up with your family doctor in the
next 2 to 3 days for reevaluation of your symptoms. Return if any worsening of symptoms of increased pain nausea vomiting fever chills or any further concerns.
Interventions
Interventions:
*Risk Screen - Suicide Last Done: 09/19/24 19:17
*General Assessment Last Done: 09/19/24 19:17
*Neglect/Abuse Screening Last Done: 09/19/24 19:17
*ED- Fall Risk Assessment Last Done: 09/19/24 19:17
*ED COVID-19 Vaccine History Last Done: 09/19/24 19:17
*Nursing Disposition Last Done: 09/19/24 22:52
AG-Olocqs-Quadsiryno Assessment Last Done: 09/19/24 18:41
ED-Female Genitourinary Assessment Last Done: 09/19/24 18:41
Discharge Date and Time
Discharge Date/Time: 09/19/24 22:53
Print Language: HUNGARIAN
[2024-09-19 19:30] LABS: % Basophils 0.1 % (0-2); % Immature Granulocytes 0.5 % (0-0.5); % Lymphocytes 18.3 % (20.5-51.1); % Monocytes 7.2 % (1.7-9.3); % Neutrophils 72.9 % (42.2-75.2); Absolute Eosinophils 0.2 10^3/uL (0-0.7); Absolute Immature Granulocytes 0.1 10^3/uL (0-0.05); Absolute Lymphocytes 2.7 10^3/uL (1.2-3.4); Absolute Monocytes 1.1 10^3/uL (0.1-0.6); Absolute Neutrophils 10.7 10^3/uL (1.4-6.5); Hematocrit 38.2 % (37.0-47.0); Hemoglobin 12.1 g/dL (12.0-16.0); Mean Corp Hgb Conc. 31.7 g/dL (33.0-37.0); Mean Corpuscular Hgb 28.3 pg (27.0-31.0); Mean Corpuscular Volume 89.3 fL (81.0-99.0); Mean Platelet Volume 9.8 fL (7.4-10.4); Nucleated Red Blood Cells % 0 %; Platelet Count 218 10^3/uL (130-400); Red Blood Cell Count 4.28 10^6/uL (4.20-5.40); White Blood Cell Count 14.7 10^3/uL (4.8-10.8)
[2024-09-19 19:31] LABS: Urine Albumin 1+ (Neg - Trace); Urine Bilirubin Negative (Negative); Urine Character Slightly Cloudy (Clear); Urine Color Yellow; Urine Glucose Negative (Negative); Urine Ketone Negative (Negative); Urine Leukocyte 3+ (Negative); Urine Nitrite Negative (Negative); Urine Occult Blood Negative (Negative); Urine Specific Gravity 1.015 (<1.030); Urine Urobilinogen Negative (Neg - 1+)
[2024-09-19 19:44] LABS: D-Dimer 0.52 ug/mlFEU (0.00-0.50)
[2024-09-19 19:47] LABS: ALT (SGPT) 48 U/L (0-35); AST (SGOT) 28 U/L (14-36); Albumin 3.4 g/dl (3.5-5.0); Alkaline Phosphatase 70 U/L (38-126); Blood Urea Nitrogen 29 mg/dl (7-17); Calcium 8.9 mg/dl (8.4-10.2); Carbon Dioxide 31 mmol/L (22-30); Chloride 101 mmol/L (98-107); Estimated Creatinine Clearance 59 ml/min; Glucose 124 mg/dl (70-99); Potassium 4.9 mmol/L (3.5-5.1); Sodium 135 mmol/L (135-145); Total Bilirubin 0.5 mg/dl (0.2-1.3); Total Protein 5.9 g/dl (6.3-8.2); eGFR 56.11
[2024-09-19 19:58] LABS: Urine Bacteria Many (Negative); Urine Red Blood Cell 0-2 /HPF (0-2); Urine Squamous Cell 0-2 /LPF (Few); Urine White Cell >100 /HPF (0-5)
[2024-09-19 20:00] VITALS: BP 158/98
[2024-09-19] MEDS: TYLENOL 1000 MG PO (20:05)
[2024-09-19 21:00] VITALS: BP 142/81
[2024-09-19 22:00] VITALS: BP 146/86
[2024-09-19] MEDS: ROCEPHIN 1000 MG IV (22:48)
== END 2024-09-19 22:53 | disposition home or self-care (01) ==
LOC: EMR 18:01
PROVIDERS: Emergency Medicine; Nurse Practitioner; EMERGENCY PHYSICIAN Emergency Medicine; FAMILY PHYSICIAN Internal Medicine
DX: N12 Tubulo-interstitial nephritis, not specified as acute or chronic (principal); J44.89 Other specified chronic obstructive pulmonary disease; N28.89 Other specified disorders of kidney and ureter; E11.9 Type 2 diabetes mellitus without complications; I10 Essential (primary) hypertension; K21.9 Gastro-esophageal reflux disease without esophagitis; Z86.711 Personal history of pulmonary embolism; Z79.02 Long term (current) use of antithrombotics/antiplatelets; Z98.84 Bariatric surgery status
CPT/HCPCS: 96374; 99284; 71046; 74176; 80053; 81003; 81015; 85025; 85379; 87086

== ENCOUNTER → 2025-01-02 08:28 | Outpatient (REF) | payer MEDICARE, SELFPAY | LOC: HWWDC 08:28 | PROVIDERS: ATTENDING PHYSICIAN Internal Medicine | DX: Z12.31 Encounter for screening mammogram for malignant neoplasm of breast (principal) | CPT/HCPCS: 77063; 77067 ==

== ENCOUNTER 2025-01-21 16:53 | Observation (INO) | payer MEDICARE, SELFPAY ==
[2025-01-21 12:34] VITALS: BP 153/92
[2025-01-21 12:56] LABS: Hematocrit 37.6 % (37.0-47.0); Hemoglobin 12.2 g/dL (12.0-16.0); Mean Corp Hgb Conc. 32.4 g/dL (33.0-37.0); Mean Corpuscular Volume 86.0 fL (81.0-99.0); Nucleated Red Blood Cells % 0 %; Platelet Count 215 10^3/uL (130-400); Red Cell Dist. Width 14.6 % (11.5-14.5)
[2025-01-21 13:20] LABS: ALT (SGPT) 66 U/L (0-35); AST (SGOT) 97 U/L (14-36); Albumin 4.0 g/dl (3.5-5.0); Alkaline Phosphatase 112 U/L (38-126); Blood Urea Nitrogen 28 mg/dl (7-17); Calcium 9.4 mg/dl (8.4-10.2); Carbon Dioxide 22 mmol/L (22-30); Chloride 108 mmol/L (98-107); Glucose 142 mg/dl (70-99); Potassium 4.3 mmol/L (3.5-5.1); Sodium 140 mmol/L (135-145); Total Protein 6.7 g/dl (6.3-8.2); eGFR 55.76
[2025-01-21 13:36] LABS: Lipase 121 U/L (23-300)
--- NOTE | 2025-01-21 14:19 | ED.GENMED ---
History of Present Illness
General
Chief Complaint: Abdominal Pain
Source: patient
Exam Limitations: none
Time Seen by Provider: 01/21/25 13:57
History of Present Illness
History of Present Illness:
64yoF with history of prior stroke on Plavix, hypertension, type 2 diabetes, GERD, and prior gastric sleeve presenting for evaluation of abdominal pain. Symptoms have been intermittent since the beginning of November. She reports a squeezing pain in
her epigastric region that is intermittent. Symptoms tend to occur about 1-2 times weekly and usually occur after eating something fatty. Symptoms last for about 30 minutes at a time. She takes Pepto-Bismol with improvement. Patient has been
speaking with her media/instructional designer who was concerned that she may have pancreatitis due to her being on Ozempic. She has an appointment scheduled with her media/instructional designer in April. She has a known history of stones but has never experienced
symptoms from this before. Patient is currently pain free on initial exam but did have an episode of pain around 11:30am which was associated with nausea. She denies any chest pain, shortness of breath, fevers, diarrhea, constipation, urinary
symptoms.
Past History
Past History
ED Past Medical History: Asthma, COPD, GERD, HTN and NIDDM
Phy Exam
General Physical Exam
General Presentation: well appearing and no apparent distress
General Skin: warm and dry
General Habitus: normal
General Mental: alert
ENT Exam
ENT Exam: normocephalic
Cardiovascular Exam
Cardiovascular Exam: regular rate/rhythm
Pulmonary Exam
Pulmonary Exam: lungs clear, no respiratory distress, no rales, no crackles, no rhonchi and no wheezing
Gastrointestinal Exam
Gastrointestinal Exam: soft, non distended and other (+Tenderness in RUQ and epigastrium. +Avalos's sign. )
Neurological Exam
Neurological Exam: alert
Aron Coma Scale
Eye Opening: Spontaneous
Verbal Response: Oriented
Motor Response: Obeys Commands
GCS Total Score: 15
Skin Exam
Skin Exam: normal color and warm/dry
Psychiatric Exam
Psychiatric Exam: normal mood/affect
Course
Orders/Labs/Results
Orders:
Orders
01/21/25 12:47
Complete Blood Count/With Diff Urgent
Comprehensive Metabolic Panel Urgent
Lipase Urgent
01/21/25 14:17
Electrocardiogram (*1) Urgent
Reason for Study: Abdominal Pain
EKG- Treatment ONCE
US Abdomen Complete/Upper Urgent
Comment:
Reason For Exam: epigastric, RUQ pain
01/21/25 14:38
Troponin I Urgent
01/21/25 16:34
Admit/Transfer Patient As Directed
Co-Sign Provider:
Level of Care: Observation services
Assign to:: Medical/Surgical
Physician / Group: bahman murry
Diagnosis: gallstones
Reason for Hospitalization: gallstones
ELOS- Estimated Length of Stay in days: 3
01/21/25 16:35
Code Status As Directed
Resuscitation Status: Full Code
01/21/25 16:42
PRN Pain Medication Management As Directed
May give lesser potent ordered pain med per pt: Yes
preference::
Protocol:: Medication orders for pain may be administered in a
manner that supports deferring to patient preference
when the pt is:
-Requesting an ordered lesser potent pain medication.
Least to most potent pain medications are defined as:
acetaminophen < NSAID < tramadol < opioids (morphine,
oxycodone, hydromorphone).
- Requesting a lesser dose of the same medication IF
ORDERED.
- Requesting a less intrusive route of administration
if both routes are prescribed by the provider (PO <
IV).
Abnormal Lab Results
01/21/25
12:47
MCHC 32.4 L g/dL
(33.0-37.0)
RDW 14.6 H %
(11.5-14.5)
Chloride 108 H mmol/L
(98-107)
BUN 28 H mg/dl
(7-17)
Creatinine 1.1 H mg/dL
(0.6-1.0)
Glucose 142 H mg/dl
(70-99)
AST 97 H U/L
(14-36)
ALT 66 H U/L
(0-35)
01/21/25 12:47
01/21/25 12:47
Vital Signs
Initial and Last Documented VS:
Initial Vital Signs
Temp Pulse Resp BP Pulse Ox
97.7 F 82 16 153/92 93
01/21/25 12:34 01/21/25 12:34 01/21/25 12:34 01/21/25 12:34 01/21/25 12:34
Last Documented Vital Signs
Temp Pulse Resp BP Pulse Ox
97.7 F 70 24 158/91 91
01/21/25 12:34 01/21/25 14:45 01/21/25 14:45 01/21/25 14:38 01/21/25 14:45
MDM/Problems Addressed
Differential Diagnosis Includes:
64yoF here with intermittent epigastric pain x 2 months. Occurs after eating fatty meals and improves with Pepcid. Hx of gallstones and prior gastric sleeve. She is hypertensive but otherwise stable vital signs. She is well-appearing no acute
distress. Avalos sign is positive on abdominal exam. Differential diagnosis includes but is not limited to: Biliary colic, cholecystitis, peptic ulcer disease, pancreatitis
Initial ED plan: Lab work obtained in triage. Mild transaminitis noted with AST 97 and ALT at 66. Total bilirubin normal. White count and lipase normal. Will check troponin/EKG and upper abdominal ultrasound.
*Pulse Oximetry
SaO2: 93
Oxygen Mode of Delivery: Room air
Patient hypoxic: no (93%)
*EKG
Interpreted by ED Provider?: Yes
EKG Intrepretation Date: 01/21/25
Heart Rate: 69
Rate: normal
Rhythm: sinus
[place]: normal axis
Interval: first degree heart block
QRS Pattern: normal QRS
Ischemia: no ischemia
*Critical Care Note
Total Time (30-74mins, 75-104mins- exclusive of procedures): Not Applicable
Update Note
Update Note:
EKG shows normal sinus rhythm without ischemic changes and troponin within normal limits. Ultrasound shows cholelithiasis without signs of acute cholecystitis. Common bile duct is dilated at 7 mm. Will admit for MRCP and GI evaluation.
ED Attending Note
-
Portions of this chart may have been created with voice recognition software.� Occasional wrong word or��sound alike� substitutions may have occurred due to the inherent limitations of voice recognition software.
Discharge Plan
Departure
Patient Disposition: Admit
Date of Disposition: 01/21/25
Time of Disposition: 16:16
Presentation/result/management discussed w/ accepting MD/DO: Hospitalist
Discharge Problem:
Epigastric pain, Dilated cbd, acquired
Prescriptions:
No Action
clopidogrel [Plavix] 75 mg Tablet
75 mg PO DAILY
atorvastatin 40 mg Tablet
40 mg PO DAILY
metformin 500 mg Tablet
500 mg PO BID
carvedilol 25 mg Tablet
25 mg PO BID
alendronate 70 mg Tablet
70 mg PO SA
omeprazole 40 mg Capsule,Delayed Release(Dr/Ec)
40 mg PO BID
lorazepam 0.5 mg Tablet
0.5 mg PO DAILYPRN PRN (Reason: anxiety)
furosemide 20 mg Tablet
20 mg PO Q48H
albuterol sulfate 90 mcg/actuation Hfa Aerosol Inhaler
2 puff INHALATION R Q6HPRN PRN (Reason: sob)
losartan 100 mg Tablet
100 mg PO DAILY
escitalopram oxalate 10 mg Tablet
5 mg PO HS
insulin glargine [Lantus Solostar U-100 Insulin] 100 unit/mL (3 mL) Insulin Pen
10 unit SC HS
Stiolto Respimat 2.5-2.5 mcg/actuation Mist
2 puff INHALATION R BID
Ozempic 1 mg/dose (4 mg/3 mL) Pen Injector
1 mg SC SA
prednisone 10 mg Tablet
See Rx Instructions .ROUTE .COMPLEX Qty: 30 0RF
Rx Instructions:
Take By Mouth:
40 mg daily x3 days, 30 mg daily x3 days,
20 mg daily x3 days, 10 mg daily x3 days.
guaifenesin 600 mg Tablet Extended Release 12hr
600 mg PO Q12 Qty: 30 0RF
doxycycline hyclate 100 mg Capsule
100 mg PO Q12 Qty: 10 0RF
Pulmicort Flexhaler 180 mcg/actuation aerosol powdr breath activated
1 inh inhalation BID Qty: 1 0RF
cefdinir 300 mg capsule
300 mg PO BID Qty: 28 0RF
Referrals:
Ana Wynne DO [Family Provider, Family Practice]
Interventions
Interventions:
*Risk Screen - Suicide Last Done: 01/21/25 12:34
*Neglect/Abuse Screening Last Done: 01/21/25 12:34
VZ-Yuzskn-Abyxdihsfs Assessment Last Done: 01/21/25 15:06
Discharge Date and Time
Print Language: GEORGIAN
[2025-01-21 14:37] VITALS: BMI 36.5
[2025-01-21 14:38] VITALS: BP 158/91
[2025-01-21 15:19] LABS: Troponin I < 0.012 ng/ml
--- NOTE | 2025-01-21 16:18 | HPS.HSE ---
Family Physician
-
Family Physician: Ana Wynne DO
Chief Complaint
-
epigastric abdominal pain
History of Present Illness
64yoF with history of prior stroke on Plavix, hypertension, type 2 diabetes, GERD, and prior gastric sleeve presenting for evaluation of abdominal pain since november. Patient stated she was getting epigastric pain 2 times a week associated with nausea.
Was evaluated by aquatics lifeguard who scheduled CAT scan for February. Patient stated she noticed excruciating epigastric pain on January 18 and today prompted her to come to the ER. Patient denied any diarrhea or constipation. Patient denies any
headache, dizziness or syncope. Patient denied any fever, chills, chest pain, short of breath patient denied dysuria or hematuria.
Ultrasound with impression of slightly distended common bile duct, 7 mm. Admitted for further evaluation
Medical History
Past Medical History
Past Medical History: Reports Other
Additional Past Medical History:
Hyperlipidemia
CVA
Cardiomyopathy
GERD
Obstructive sleep apnea
Type 2 diabetes
Diabetic retinopathy
Past Surgical History: Reports Other
Additional Past Surgical History:
Right elbow repair
Gastrectomy sleeve
Social History
Tobacco: Non-smoker
Alcohol: None
Drug: None
Family History
Family History: Not pertinent
Allergies / Home Medications
Allergies reflects when Allergies were last updated in [employer].
Home Medications with original date entered in [employer]
Allergy/Medication List:
Allergies
Allergy/AdvReac Type Severity Reaction Status Date / Time
No Known Allergies Allergy Verified 01/21/25 12:34
Home Medications
clopidogrel 75 mg tablet (Plavix) 75 mg PO DAILY Blood Clot Prevention/Tx 03/14/24
albuterol sulfate 90 mcg/actuation aerosol inhaler 2 puff inhalation R Q6HPRN PRN sob 09/03/24
alendronate 70 mg tablet 70 mg PO SA bone health 09/03/24
atorvastatin 40 mg tablet 40 mg PO DAILY High Cholesterol 09/03/24
carvedilol 25 mg tablet 25 mg PO BID Blood Pressure 09/03/24
escitalopram oxalate 10 mg tablet 5 mg PO Mental Health 09/03/24
furosemide 20 mg tablet 20 mg PO Q48H Fluid Retention/Swelling 09/03/24
insulin glargine 100 unit/mL (3 mL) subcutaneous pen (Lantus Solostar U-100 Insulin) 10 unit SC HS Diabetes 09/03/24
lorazepam 0.5 mg tablet 0.5 mg PO DAILYPRN PRN anxiety 09/03/24
losartan 100 mg tablet 100 mg PO DAILY Blood Pressure 09/03/24
metformin 500 mg tablet 500 mg PO BID Diabetes 09/03/24
omeprazole 40 mg capsule,delayed release 40 mg PO BID Gastrointestinal Issue 09/03/24
semaglutide 1 mg/dose (4 mg/3 mL) subcutaneous pen injector (Ozempic) 1 mg SC Diabetes 09/03/24
tiotropium 2.5 mcg-olodaterol 2.5 mcg/actuation mist for inhalation (Stiolto Respimat) 2 puff inhalation R BID Lung/Breathing Issues 09/03/24
budesonide 180 mcg/actuation breath activated powder inhaler (Pulmicort Flexhaler) 1 inh inhalation BID #1 ea 09/05/24
doxycycline hyclate 100 mg capsule 100 mg PO Q12 #10 caps 09/05/24
guaifenesin 600 mg tablet, extended release 12 hr 600 mg PO Q12 #30 tabs 09/05/24
prednisone 10 mg tablet See Rx Instructions .Route .COMPLEX #30 tabs 09/05/24
cefdinir 300 mg capsule 300 mg PO BID #28 caps 09/19/24
Review of Systems
-
Constitutional: Reports No Symptoms
EENT: Reports No Symptoms
Respiratory: Reports No Symptoms
Cardiac: Reports No Symptoms
Abdomen/GI: Reports Abdominal Pain
: Reports No Symptoms
Musculoskeletal: Reports No Symptoms
Skin: Reports No Symptoms
Neurological: Reports No Symptoms
Endocrine: Reports No Symptoms
Hematologic/Lymphatic: Reports No Symptoms
Psych: Reports No Symptoms
Physical Exam
Vital Signs
Vital Signs
Temp Pulse Resp BP Pulse Ox
97.7 F 70 24 158/91 91
01/21/25 12:34 01/21/25 14:45 01/21/25 14:45 01/21/25 14:38 01/21/25 14:45
Physical Exam
General: Well Developed, Well Nourished and No Apparent Distress
HEENT: NormoCephalic, Moist mucous membranes and Atraumatic
Respiratory: Clear
Cardiac: S1/S2 and Regular Rhythm; No Murmur or Rub
GI: Soft, Non Tender, Non Distended and Normal Bowel Sounds; No Organomegaly
Rectal: Deferred by Provider
Musculoskeletal: No Clubbing, No Cyanosis and No Edema
Skin: No Rash
Neuro: AO x 3 and Nonfocal/grossly intact
Psych: Calm
Laboratory Results
-
01/21/25 12:47
01/21/25 12:47
Laboratory Results
Total Bilirubin 0.6 mg/dl (0.2-1.3) 01/21/25 12:47
AST 97 U/L (14-36) H 01/21/25 12:47
ALT 66 U/L (0-35) H 01/21/25 12:47
Alkaline Phosphatase 112 U/L (38-126) 01/21/25 12:47
Troponin I < 0.012 ng/ml 01/21/25 14:38
Lipase 121 U/L (23-300) 01/21/25 12:47
Data Reviewed
-
Diagnostic Radiology: Report Reviewed by me
Lab Data: Labs Reviewed by me
Impression/Plan
-
#epigastric pain secondary to gallstones with dilated CBD
-AST 97,ALT 66
-MRCP
-clear liquid diet
-fluids continued for hydration
-GI consulted
-US abdomen with Cholelithiasis. No sonographic evidence of acute cholecystitis.Slightly distended common bile duct, 7 mm,Medullary nephrocalcinosis No hydronephrosis.
#CKD stage 3b
-cr 1.1
-ctm
#CAD stable
-Plavix held in anticipation of any acute surgical intervention.
#DM type 2 with neuropathy
-sliding scale, Lantus
-held metformin
#HLD
-statin held
#Essential HTN
-coreg, losartan,furosemide continued with hold parameter
#Anxiety
-Escitalopram continued
#Osteoporosis
#GERD
-PPI continued
DVT ppx heparin sq
FUll code
--- NOTE | 2025-01-21 16:25 | W.PN.UPDATE ---
Update Note
Progress Note Update
This note serves as an addendum to the H&P by senior cost accountant TOM Maureen LANCASTER
HPI
64F PMHX prior stroke on Plavix, HTN, T2DM, GERD, and prior gastric sleeve seen at ER
- reports recurrent epigastric pain x 2 months after eating fatty meals.
- afebrile and nl WCC
US shows gallstones with a dilated CBD. No evidence of cholecystitis.
Relevant VS: afebrile, stable
PE
Gen: NAD
HEENT: anicteric
Lungs: CTA
Cor: Not tachycardic
Abdomen: +Tenderness in RUQ and epigastrium. +Avalos's sign.
BOOM WORKER: AAO3
MS:no edema
Psych:
Relevant data
Nl WCC
AST 97. ALT 66, normal TB
US complete abdomen
- Cholelithiasis.
- No sonographic evidence of acute cholecystitis.
- Slightly distended common bile duct, 7 mm, more prominent than on prior CT examination.
Recommend correlation with liver function tests.
Consider further evaluation/follow-up MRI/MRCP if indicated.
Last hospitalist admission:
ASSESSMENT & PLAN
Pending Rx reconciliation
Recurrent epigastric pain presumed GS biliary colic
Abn LFTS , Nl TB possibel passage of GS
Cholelithiasis gallstones with a slightly dilated CBD.
NO Sono evidence of acute cholecystitis
Known HX Gallstones
- Clear
- PRN analgesia
- Hold off ABx for now
- Hold off Plavix for now in case GI procedure
- MRCP
- GI consult
HX CVA without any resdual deficit in 2017 since she is on Plavix
HLD
- cont. Plavix
- Hold Atorvastatin
- Trend LFTS
T2DM
- Hold Metformin
- cont. Lantus cut down to [address] of 10U HS
- add ISS low
Benign HTN
- on Carvedilol
DVT Px: SQH
Full code
OBS MS
--- NOTE | 2025-01-21 17:24 | CM ---
CM reviewed chart and met with pt bedside in ED. Lives with her father in 1 story home, no ERIKA.
Independent in ADLs, personal care, ambulation at baseline, has rolling walker, uses them when she needs them.
Father(Saulo) is also independent, still driving. They take care of each other per pt.
Hx VN - [facility], no hx SNF
PCP: Ana Wynne
Pharmacy: [facility]
Discharge plan: Anticipate home, CM will continue to follow for discharge planning needs
[2025-01-21 19:34] VITALS: BP 167/98; BMI 34.3
--- NOTE | 2025-01-21 19:45 | PTCARENOTE ---
Received patient from ED via stretcher. Patient ambulated from stretcher to bed with minimal assistance. AAOx3, no current complaints of pain. Oriented patient to room and placed call jackman within reach.
[2025-01-21] MEDS: COREG 25 MG PO (20:48)
[2025-01-21] MEDS: HEPARIN 5000 UNITS SC (20:49)
[2025-01-21] MEDS: LEXAPRO 5 MG PO (20:54)
[2025-01-21 21:05] LABS: Glucose - Point of Care 167 mg/dl (70-99)
[2025-01-21] MEDS: LANTUS 0.1 UNITS SC (21:23)
[2025-01-21 21:50] VITALS: PULSE 80
[2025-01-21 23:41] VITALS: BP 157/84
[2025-01-22 03:15] VITALS: PULSE 81
[2025-01-22 07:00] VITALS: BP 166/93
[2025-01-22 08:06] LABS: Glucose - Point of Care 72 mg/dl (70-99)
--- NOTE | 2025-01-22 08:21 | CON.GI ---
Addendum entered and electronically signed by Yulissa Pinto DO 01/22/25 09:48:
I saw and evaluated the patient. I reviewed the resident�s note and agree with findings and plan as documented in the resident�s note.
64 y.o. female with gastric sleeve, obesity on ozempic, CVA, cardiomyopathy, DUSTY admitted with biliary colic, symptoms have been increasing in frequency over the last few months. She is on plavix, last dose 01/21. CT A/P with evidence of
cholelithiasis, no evidence of choledocho or cholecystitis. Tranasminases mildly elevated. Otherwise, afebrile and hemodynamically stable.
A/P:
-antiemetics, analgesia prn
-IVF
-MRCP to evaluate for choledocholithiasis
Will follow
Original Note:
Consultation
-
Date/Time Consultation Requested: 01/21/25
Date/Time Consultation Performed: 01/22/25
Requesting Provider: Maureen Rankin
Performing Provider: Yulissa Pinto
Medical History
Chief Complaint / HPI
Chief Complaint: Abdominal pain associated with nausea
History of Present Illness:
Patient is a 64-year-old femaleWith past medical history of stroke (on Plavix, last dose 01/21/2025 AM), essential hypertension, type 2 diabetes mellitus, GERD, history of gastric sleeve who has had multiple episodes of abdominal pain, associated
with nausea since March,. Patient has been keeping track of these episodes on her phone and initially she had the episodes every other month which then gradually increased to every month and then occurring multiple times a week. She
noticed that the pain beginning after having fatty food like cheeses and burgers. The pain was severe in intensity 10/10, felt like her stomach was being squeezed with a sensation of nausea but no vomiting, no fever, no chills.
Initially she thought it was a stomach ulcer because the symptoms were correlating with the time he she had an ulcer in her 30s but then the symptoms were intermittent while those with the ulcer were constant.
She sees , who scheduled an abdominal CT in February but advised her to come to the ER if she gets similar episode with symptoms. She experienced the symptoms on January 18 and used Pepto-Bismol to help with the symptoms and finished 3 bottles.
The symptoms were somewhat responding to that but yesterday she decided come to the ER as the symptoms were persistent.
Abdominal ultrasound done in the ER showed cholelithiasis and a dilated common bile duct that was more prominent than prior CT scan done in September 2024. GI was consulted for suspicion of choledocholithiasis. Patient currently stable, waiting for
MRCP, and currently asymptomatic.
Past Medical History
Past Medical History: Other (Hyperlipidemia CVA Cardiomyopathy GERD Obstructive sleep apnea Type 2 diabetes Diabetic retinopathy)
Past Surgical History: Other (Right elbow repair Gastrectomy sleeve )
Social History
Tobacco: Former Smoker (Quit more than 30 years ago)
Alcohol: None
Drug: None
Personal: Single
Living: With Family (Lives with father and has a dog Bandit, has 2 sons Arpan and Nabeel, Arpan is the emergency contact, both sons live in town about 20 minutes away from her)
Employment: Not Employed
Family History
Family History: Reviewed & Not Pertinent
Allergies / Home Medications
Allergy/AdvReac Type Severity Reaction Status Date / Time
No Known Allergies Allergy Verified 01/21/25 12:34
�Medication �Instructions �Recorded
clopidogrel 75 mg tablet (Plavix) 75 mg PO DAILY Blood Clot 03/14/24
Prevention/Tx
albuterol sulfate 90 mcg/actuation 2 puff inhalation R Q6HPRN PRN sob 09/03/24
aerosol inhaler
alendronate 70 mg tablet 70 mg PO CÁRDENAS bone health 09/03/24
carvedilol 25 mg tablet 25 mg PO BID Blood Pressure 09/03/24
escitalopram oxalate 10 mg tablet 5 mg PO HS Mental Health 09/03/24
insulin glargine 100 unit/mL (3 10 unit SC HS Diabetes 09/03/24
mL) subcutaneous pen (Lantus
Solostar U-100 Insulin)
losartan 100 mg tablet 100 mg PO DAILY Blood Pressure 09/03/24
metformin 500 mg tablet 500 mg PO BID Diabetes 09/03/24
semaglutide 1 mg/dose (4 mg/3 mL) 1 mg SC SA Diabetes 09/03/24
subcutaneous pen injector (Ozempic)
tiotropium 2.5 mcg-olodaterol 2.5 2 puff inhalation R BID 09/03/24
mcg/actuation mist for inhalation Lung/Breathing Issues
(Stiolto Respimat)
acetaminophen 325 mg tablet 650 mg PO Q6HPRN PRN mild pain 01/21/25
(Tylenol)
atorvastatin 20 mg tablet (Lipitor) 20 mg PO DAILY 01/21/25
bismuth subsalicylate 262 mg/15 mL 524 mg PO Q6HPRN PRN stomach issues 01/21/25
oral suspension (Pepto-Bismol)
furosemide 20 mg tablet (Lasix) 20 mg PO MOWEFR 01/21/25
pantoprazole 40 mg tablet,delayed 40 mg PO DAILY 01/21/25
release (Protonix)
Review of Systems
-
All other systems: A 12 pt ROS was Negative except as stated above in HPI
Vital Signs
Temp Pulse Resp BP Pulse Ox
98.1 F 74 18 157/84 93
01/21/25 23:41 01/21/25 23:41 01/21/25 23:41 01/21/25 23:41 01/21/25 23:41
Physical Exam
Exam
General: No Apparent Distress and Comfortable
HEENT: Normocephalic, Anicteric and Moist Mucous Membranes
Respiratory: Clear; Negative Wheezes, Rales or Rhonchi
Cardiac: S1/S2 and Regular Rhythm; Negative Murmur or Rub
GI: Soft, Non Tender, Non Distended and Normal Bowel Sounds
Musculoskeletal: No Clubbing, No Cyanosis and No Edema
Skin: Warm and Dry
Neuro: AO x 3
Psych: Calm
Results
WBC 7.7 10^3/uL (4.8-10.8) 01/21/25 12:47
Hgb 12.2 g/dL (12.0-16.0) 01/21/25 12:47
Hct 37.6 % (37.0-47.0) 01/21/25 12:47
MCV 86.0 fL (81.0-99.0) 01/21/25 12:47
Plt Count 215 10^3/uL (130-400) 01/21/25 12:47
Absolute Neuts (auto) 4.9 10^3/uL (1.4-6.5) 01/21/25 12:47
Sodium 140 mmol/L (135-145) 01/21/25 12:47
Potassium 4.3 mmol/L (3.5-5.1) 01/21/25 12:47
Chloride 108 mmol/L (98-107) H 01/21/25 12:47
Carbon Dioxide 22 mmol/L (22-30) 01/21/25 12:47
BUN 28 mg/dl (7-17) H 01/21/25 12:47
Creatinine 1.1 mg/dL (0.6-1.0) H 01/21/25 12:47
Calcium 9.4 mg/dl (8.4-10.2) 01/21/25 12:47
Total Bilirubin 0.6 mg/dl (0.2-1.3) 01/21/25 12:47
AST 97 U/L (14-36) H 01/21/25 12:47
ALT 66 U/L (0-35) H 01/21/25 12:47
Alkaline Phosphatase 112 U/L (38-126) 01/21/25 12:47
Lipase 121 U/L (23-300) 01/21/25 12:47
Diagnostic Image Results:
Abdominal ultrasound 01/21/2025
IMPRESSION:
Cholelithiasis. No sonographic evidence of acute cholecystitis.
Slightly distended common bile duct, 7 mm, more prominent than on prior CT examination. Recommend correlation with liver function tests. Consider further evaluation/follow-up MRI/MRCP if indicated.
Medullary nephrocalcinosis No hydronephrosis.
Abdominal/pelvis CT 10/09
IMPRESSION:
Bilateral medullary nephrocalcinosis. No evidence for ureteral calculus.
Mild to moderate elevation of the left hemidiaphragm. Adjacent compressive atelectasis in the left lower lung.
Cholelithiasis. No CT findings to suggest acute cholecystitis but please correlate clinically. No evidence for biliary ductal dilation.
3 cm anterior splenic cyst, stable
2.2 cm diverticulum arising from the left posterolateral urinary bladder.
The appendix appears normal. Scattered colonic diverticula with no CT evidence for diverticulitis.
Prior GI Procedures:
EGD:
Colonoscopy: 10/28/23
Impression: - Diverticulosis in the sigmoid colon and in the
transverse colon.
- Internal hemorrhoids.
- No specimens collected.
Assessment / Plan
-
Impression
A 64-year-old female, admitted with history of gallstones, abdominal pain, nausea and suspected choledocholithiasis. Scheduled for MRCP today. GI consulted for dilated common bile duct/choledocholithiasis
Assessment/plan
Cholelithiasis
Dilated common bile duct/ suspected choledocholithiasis
Essential hypertension-uses carvedilol 25 mg, losartan 100 mg and furosemide 20 mg
GERD-uses PPIs and Pepto-Bismol
Type 2 diabetes mellitus-on metformin, Lantus 10 units, Ozempic
On Ozempic-since July 2023-currently using 1 mg dose every Tuesday, last dose was on January 19, 2025(did not tolerate 2 mg dose last year),Lost 50lbs over last year
History of asthma, COPD,-stable on inhalers, sleep apnea-uses CPAP
Currently asymptomatic
Examination benign
On review of labs
No leukocytosis
Normal liver enzymes except ALT of 52
Plan
Hold Ozempic
Keep on clears
MRCP to assess for common bile duct stones
Manage symptomatically with judicious use of pain medications and antiemetics
Plan ERCP based on MRCP results
If MRCP positive for common bile duct stones-ERCP
If MRCP negative for common bile duct stones-and patient symptomatic for cholelithiasis-consider cholecystectomy
DVT prophylaxis-sequential compression devices
CODE STATUS-full code
-
-
Thank you for consultation and allowing me to participate in the patient's care. Please call the regional liaison GI physician during the after hours with any questions or concerns.
[2025-01-22] MEDS: SPIRIVA RESPIMAT 2.5 MCG 2 PUFF INH (08:24)
[2025-01-22] MEDS: STRIVERDI RESPIMAT 2 PUFF INH (08:24)
[2025-01-22 08:27] LABS: ALT (SGPT) 52 U/L (0-35); AST (SGOT) 35 U/L (14-36); Albumin 3.7 g/dl (3.5-5.0); Alkaline Phosphatase 88 U/L (38-126); Blood Urea Nitrogen 21 mg/dl (7-17); Calcium 9.2 mg/dl (8.4-10.2); Carbon Dioxide 29 mmol/L (22-30); Chloride 108 mmol/L (98-107); Estimated Creatinine Clearance 70 ml/min; Glucose 68 mg/dl (70-99); Potassium 4.1 mmol/L (3.5-5.1); Sodium 141 mmol/L (135-145); Total Protein 6.3 g/dl (6.3-8.2); eGFR > 60.00
[2025-01-22] MEDS: COREG 25 MG PO ×2 (08:58→19:32)
[2025-01-22] MEDS: COZAAR 100 MG PO (08:58)
[2025-01-22] MEDS: PROTONIX 40 MG PO (08:58)
[2025-01-22] MEDS: HEPARIN 5000 UNITS SC ×2 (08:59→19:33)
[2025-01-22] MEDS: ATIVAN 1 MG PO (09:41)
[2025-01-22 09:53] LABS: Glycohemoglobin (HgbA1c) 6.0 % (4.0-5.6)
[2025-01-22 12:01] LABS: Glucose - Point of Care 73 mg/dl (70-99)
--- NOTE | 2025-01-22 14:59 | W.PN.HOSP.TC ---
Today's Communication/Plan
-
diet
NPO after MN
Assessment / Plan
Assessment / Plan
64-year-old female with epigastric pain. Patient has history of gallstones. She has had this pain for 2 weeks associated with nausea. 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
USS- Cholelithiasis. No sonographic evidence of acute cholecystitis.Slightly distended common bile duct, 7 mm, more prominent than on prior CT examination. Recommend correlation with liver function tests. Consider further evaluation/follow-up
MRI/MRCP if indicated.Medullary nephrocalcinosis No hydronephrosis.
EKG-sinus rhythm with first-degree AV block
MRI of the abdomen-cholelithiasis, CBD 7.4 mm. No evidence of choledocholithiasis. 1.2 cm cystic focus in the pancreatic body which may represent pseudocyst or sidebranch IPMN. Recommend continued follow-up. Colonic diverticulosis. Unchanged
2.5 cm hepatic cyst.
CVS: S1-S2 normal
Chest: CTA B/L
Abdomen: Soft, mild epigastric tenderness,
Extremities: No edema, normal pulses
# Epigastric pain
Elevated LFTs
Ultrasound of the abdomen with CBD 7 mm
MRI/MRCP as above.
With history of peptic ulcer patient may benefit from EGD
If that is negative outpatient evaluation for cholecystectomy for biliary colic
Defer to GI for final decision making
Hold Plavix
GI consulted and following
# Diabetes-hemoglobin A1c-6.0
Uses Lantus insulin 10 units, metformin 5 mg twice daily, Ozempic 1 mg on Saturdays as outpatient
Accu-Cheks and sliding scale coverage
# Hypertension-continue losartan, carvedilol
# Hyperlipidemia-restart statin
# History of CVA 2016-hold Plavix and restart statin
# CKD- Medullary sponge kidney per ultrasound
# Anxiety-continue Lexapro
# COPD/asthma-continue albuterol as needed, Stiolto or equivalant
# Obesity-on Ozempic 1 mg on Saturdays
History of gastric bypass surgery-continue PPI
# Diverticulosis/internal hemorrhoids
# History of bilateral pulmonary nodules-needs outpatient follow-up
# Sleep apnea-continue CPAP
# History of nephrolithiasis
# DVT prophylaxis-subcutaneous heparin
# Full code
Discussed with GI
D/W Father at bed side
Part of this note was created using voice recognition system. Occasional wrong word or��sound alike� substitutions may have inadvertently occurred due to the inherent limitations of voice recognition software. If noted kindly bring it to my
attention for correction.
Anticipated Discharge: Within 24 hours
Subjective/Interval History
-
Date of Service: January 22, 2025
Objective Data
-
Labs:
Laboratory Results
01/22/25
06:54
Sodium 141
Potassium 4.1
Chloride 108 H
Carbon Dioxide 29
BUN 21 H
Creatinine 0.9
Glucose 68 L
Calcium 9.2
Total Bilirubin 0.7
AST 35
ALT 52 H
Alkaline Phosphatase 88
Vital Signs:
Vital Signs
Temp Pulse Resp BP Pulse Ox
97.9 F 74 18 166/93 92
01/22/25 07:00 01/22/25 08:58 01/22/25 08:28 01/22/25 08:58 01/22/25 08:28
I&O
01/21/25 01/22/25 01/23/25
06:59 06:59 06:59
Intake Total 240 / 240
Balance 240 / 240
[2025-01-22 15:00] VITALS: BP 162/93
[2025-01-22 15:19] LABS: Hepatitis C Antibody Negative (Negative)
[2025-01-22 16:25] LABS: Glucose - Point of Care 116 mg/dl (70-99)
[2025-01-22] MEDS: LIPITOR 20 MG PO (17:33)
[2025-01-22] MEDS: LEXAPRO 5 MG PO (19:33)
[2025-01-22 21:06] VITALS: PULSE 73
[2025-01-22 21:24] LABS: Glucose - Point of Care 85 mg/dl (70-99)
[2025-01-22] MEDS: LANTUS SC (21:48)
--- NOTE | 2025-01-22 21:48 | PTCARENOTE ---
Patient's HS blood sugar 85. 10 units of lantus scheduled at 2200. Patient is NPO after midnight for endoscopy in AM. Patient stating she would rather not have her lantus because she is concerned about her sugar dropping overnight. CERTIFIED CONTROL SYSTEMS TECHNICIAN made aware
that patient refused her lantus. Plan of care ongoing.
[2025-01-22 23:55] VITALS: BP 161/95
[2025-01-23] VITALS (15 sets, daily range): BP systolic 108–210; BP diastolic 83–102
[2025-01-23 00:12] LABS: Glucose - Point of Care 112 mg/dl (70-99)
[2025-01-23 05:51] LABS: Glucose - Point of Care 84 mg/dl (70-99)
[2025-01-23] MEDS: COREG 25 MG PO (05:56)
[2025-01-23] MEDS: COZAAR 100 MG PO (05:57)
[2025-01-23] MEDS: STRIVERDI RESPIMAT 2 PUFF INH (06:10)
[2025-01-23] MEDS: SPIRIVA RESPIMAT 2.5 MCG 2 PUFF INH (06:11)
[2025-01-23 07:38] LABS: ALT (SGPT) 45 U/L (0-35); AST (SGOT) 28 U/L (14-36); Albumin 3.9 g/dl (3.5-5.0); Alkaline Phosphatase 91 U/L (38-126); Blood Urea Nitrogen 18 mg/dl (7-17); Calcium 9.4 mg/dl (8.4-10.2); Carbon Dioxide 28 mmol/L (22-30); Chloride 107 mmol/L (98-107); Estimated Creatinine Clearance 63 ml/min; Glucose 81 mg/dl (70-99); Potassium 4.1 mmol/L (3.5-5.1); Sodium 141 mmol/L (135-145); Total Protein 6.6 g/dl (6.3-8.2); eGFR > 60.00
[2025-01-23] MEDS: PROTONIX 40 MG PO (08:13)
[2025-01-23] MEDS: HEPARIN 5000 UNITS SC (08:13)
[2025-01-23 10:34] LABS: Glucose - Point of Care 90 mg/dl (70-99)
--- NOTE | 2025-01-23 15:55 | W.PN.HOSP.TC ---
Today's Communication/Plan
-
Discharge
Assessment / Plan
Assessment / Plan
64-year-old female with epigastric pain. Patient has history of gallstones. She has had this pain for 2 weeks associated with nausea. 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
USS- Cholelithiasis. No sonographic evidence of acute cholecystitis.Slightly distended common bile duct, 7 mm, more prominent than on prior CT examination. Recommend correlation with liver function tests. Consider further evaluation/follow-up
MRI/MRCP if indicated.Medullary nephrocalcinosis No hydronephrosis.
EKG-sinus rhythm with first-degree AV block
MRI of the abdomen-cholelithiasis, CBD 7.4 mm. No evidence of choledocholithiasis. 1.2 cm cystic focus in the pancreatic body which may represent pseudocyst or sidebranch IPMN. Recommend continued follow-up. Colonic diverticulosis. Unchanged
2.5 cm hepatic cyst.
Abdomen: Soft, mild epigastric tenderness, better
# Epigastric pain
Elevated LFTs
Ultrasound of the abdomen with CBD 7 mm
MRI/MRCP as above.
EGD today-normal esophagus. Nodular mucosa in the gastric fundus biopsied. Sleeve gastrectomy healthy appearing mucosa. Erythematous mucosa in the antrum biopsied. Normal duodenal bulb and second portion of the duodenum biopsied.
Patient is aware that she should take the medicines prescribed and then if symptoms do not get better follow-up with surgeon to get cholecystectomy.
# Diabetes-hemoglobin A1c-6.0
Uses Lantus insulin 10 units, metformin 5 mg twice daily, Ozempic 1 mg on Saturdays as outpatient
Accu-Cheks and sliding scale coverage
# Hypertension-continue losartan, carvedilol
# Hyperlipidemia-continue statin
# History of CVA 2017-restart Plavix and continue statin
# CKD- Medullary sponge kidney per ultrasound
# Anxiety-continue Lexapro
# COPD/asthma-continue albuterol as needed, Stiolto or equivalent
# Obesity-on Ozempic 1 mg on Saturdays
History of gastric bypass surgery-continue PPI
# Diverticulosis/internal hemorrhoids
# History of bilateral pulmonary nodules-needs outpatient follow-up
# Sleep apnea-continue CPAP
# History of nephrolithiasis
# DVT prophylaxis-subcutaneous heparin
# Full code
Discussed with GI
D/W nursing at bed side
Discharge
Part of this note was created using voice recognition system. Occasional wrong word or��sound alike� substitutions may have inadvertently occurred due to the inherent limitations of voice recognition software. If noted kindly bring it to my
attention for correction.
Anticipated Discharge: Today
Subjective/Interval History
-
Date of Service: January 23, 2025
Objective Data
-
Labs:
Laboratory Results
01/23/25
06:21
Sodium 141
Potassium 4.1
Chloride 107
Carbon Dioxide 28
BUN 18 H
Creatinine 1.0
Glucose 81
Calcium 9.4
Total Bilirubin 0.5
AST 28
ALT 45 H
Alkaline Phosphatase 91
Vital Signs:
Vital Signs
Temp Pulse Resp BP Pulse Ox
99.1 F 86 16 130/84 92
01/23/25 15:08 01/23/25 15:08 01/23/25 15:08 01/23/25 15:08 01/23/25 15:08
I&O
01/22/25 01/23/25 01/24/25
06:59 06:59 06:59
Intake Total 240 / 240 900 / 900 290 / 290
Balance 240 / 240 900 / 900 290 / 290
--- NOTE | 2025-01-23 16:04 | W.DS.TRANS ---
Addendum entered and electronically signed by Medhat Sierra MD 01/23/25 17:33:
Dictation- [id number]
Original Note:
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
-
Discharge Instructions:
Discharge Diagnosis/Procedures Epigastric pain status post endoscopy
Diabetes
Diverticulosis
2.5 cm hepatic cyst
1.2 cm cyst in the pancreas
Hypertension
Hyperlipidemia
History of CVA
Anxiety
COPD
Diverticulosis
Sleep apnea
Diet Low Fat
Additional Diets Low-fat diet today
Activity As tolerated
Driving Restrictions No driving for 24 hours
Instructions:
Stand-Alone Forms:
Changes to Home Medications: Yes
Discharge Medications:
DC Medications w/original date entered in [employer]
clopidogrel 75 mg tablet (Plavix) 75 mg PO DAILY Blood Clot Prevention/Tx 03/14/24
albuterol sulfate 90 mcg/actuation aerosol inhaler 2 puff inhalation R Q6HPRN PRN sob 09/03/24
alendronate 70 mg tablet 70 mg PO CÁRDENAS bone health 09/03/24
carvedilol 25 mg tablet 25 mg PO BID Blood Pressure 09/03/24
escitalopram oxalate 10 mg tablet 5 mg PO HS Mental Health 09/03/24
insulin glargine 100 unit/mL (3 mL) subcutaneous pen (Lantus Solostar U-100 Insulin) 10 unit SC HS Diabetes 09/03/24
losartan 100 mg tablet 100 mg PO DAILY Blood Pressure 09/03/24
metformin 500 mg tablet 500 mg PO BID Diabetes 09/03/24
semaglutide 1 mg/dose (4 mg/3 mL) subcutaneous pen injector (Ozempic) 1 mg SC SA Diabetes 09/03/24
tiotropium 2.5 mcg-olodaterol 2.5 mcg/actuation mist for inhalation (Stiolto Respimat) 2 puff inhalation R BID Lung/Breathing Issues 09/03/24
acetaminophen 325 mg tablet (Tylenol) 650 mg PO Q6HPRN PRN mild pain 01/21/25
atorvastatin 20 mg tablet (Lipitor) 20 mg PO HS High cholesterol #0 tabs 01/23/25
furosemide 20 mg tablet (Lasix) 20 mg PO MOWEFR Fluid retention/Swelling #0 tabs 01/23/25
pantoprazole 40 mg tablet,delayed release (Protonix) 40 mg PO DAILY Gastrointestinal issue #0 tabs 01/23/25
sucralfate 1 gram tablet (Carafate) 1 g PO ACHS PRN heart burn/pain #90 tabs 01/23/25
Home Medication Changes
Carafate is new
Pending Results: Yes (EGD biopsy)
== END 2025-01-23 17:27 | disposition home or self-care (01) ==
LOC: 4 EAST ACU 16:53
PROVIDERS: Emergency Medicine; Physician Assistant; Registered Nurse; ADMITTING PHYSICIAN Internal Medicine; ATTENDING PHYSICIAN Hospitalist; CONSULT PHYSICIAN Internal Medicine; EMERGENCY PHYSICIAN Emergency Medicine; FAMILY PHYSICIAN Internal Medicine
DX: R10.13 Epigastric pain (principal); I12.9 Hypertensive chronic kidney disease with stage 1 through stage 4 chronic kidney disease, or unspecified chronic kidney disease; K21.9 Gastro-esophageal reflux disease without esophagitis; E78.5 Hyperlipidemia, unspecified; I42.9 Cardiomyopathy, unspecified; G47.33 Obstructive sleep apnea (adult) (pediatric); E11.319 Type 2 diabetes mellitus with unspecified diabetic retinopathy without macular edema; I25.10 Atherosclerotic heart disease of native coronary artery without angina pectoris; E11.40 Type 2 diabetes mellitus with diabetic neuropathy, unspecified; F41.9 Anxiety disorder, unspecified; N18.32 Chronic kidney disease, stage 3b; M81.0 Age-related osteoporosis without current pathological fracture; Z79.02 Long term (current) use of antithrombotics/antiplatelets; K80.20 Calculus of gallbladder without cholecystitis without obstruction; K57.30 Diverticulosis of large intestine without perforation or abscess without bleeding; J44.89 Other specified chronic obstructive pulmonary disease; K64.8 Other hemorrhoids; K31.89 Other diseases of stomach and duodenum; E66.9 Obesity, unspecified; E11.22 Type 2 diabetes mellitus with diabetic chronic kidney disease; Z68.34 Body mass index [BMI] 34.0-34.9, adult; Z79.4 Long term (current) use of insulin; Z79.899 Other long term (current) drug therapy; Z86.73 Personal history of transient ischemic attack (TIA), and cerebral infarction without residual deficits; Z98.84 Bariatric surgery status; Z79.85 Long-term (current) use of injectable non-insulin antidiabetic drugs; Z79.51 Long term (current) use of inhaled steroids; Z87.891 Personal history of nicotine dependence; Z87.442 Personal history of urinary calculi
CPT/HCPCS: 43239; 74183; 76700; 80053; 82962; 83036; 83690; 84484; 85025; 86803; 88305; 88342; 93005; 94640; 94660; 99285; A9575; G0378

== ENCOUNTER → 2025-02-20 10:06 | Outpatient (REF) | payer MEDICARE, SELFPAY | LOC: HWRAD 10:06 | PROVIDERS: ATTENDING PHYSICIAN Internal Medicine Critical Care Medicine; PRIMARYCARE PHYSICIAN Internal Medicine | DX: R91.8 Other nonspecific abnormal finding of lung field (principal) | CPT/HCPCS: 71250 ==

== ENCOUNTER 2025-03-28 06:14 | Day surgery (SDC) | payer MEDICARE, SELFPAY ==
--- NOTE | 2025-03-25 11:48 | PTCARENOTE ---
Patients last dose of Ozepmic 03/23; DOS 03/28 Dr. Canales notified- no additional interventions required
[2025-03-28] VITALS (14 sets, daily range): BP systolic 124–160; BP diastolic 68–98; BMI 32.9
[2025-03-28 08:13] LABS: Glucose - Point of Care 113 mg/dl (70-99)
[2025-03-28] MEDS: NORMOSOL-R/PLASMALYTE-A 1000 IV (08:16)
[2025-03-28] MEDS: TYLENOL 1000 MG PO (08:16)
--- NOTE | 2025-03-28 08:55 | W.SUR.PREOP ---
Pre-Operative Surgical Note
-
I have examined this patient prior to the performance of the scheduled procedure.
The patient's condition is unchanged from the time of the current History and
Physical and the patient is able to undergo the scheduled procedure.
--- NOTE | 2025-03-28 08:55 | HP.FOC2 ---
Focused History & Physical
Chief Complaint
HPI:
Chief Complaint: Biliary colic
HPI / Indication for Planned Procedure: This is a 64-year-old female who presents with biliary colic. Will plan for laparoscopic cholecystectomy with cholangiogram.
Relevant Past Medical History: Other
Relevant Social History: Negative
Relevant Family History: Negative
Relevant Past Surgical History: Positive for (Sleeve gastrectomy)
Review of Systems
Review of Pertinent Systems: All Systems Negative
Medication
See Medication form for detailed medications: Yes
Medication List (including Herbals & OTC):
clopidogrel 75 mg tablet (Plavix) 75 mg PO DAILY Blood Clot Prevention/Tx 03/14/24
albuterol sulfate 90 mcg/actuation aerosol inhaler 2 puff inhalation PRN PRN sob 09/03/24
alendronate 70 mg tablet 70 mg PO bone health 09/03/24
carvedilol 25 mg tablet 25 mg PO BID Blood Pressure 09/03/24
escitalopram oxalate 10 mg tablet 5 mg PO Mental Health 09/03/24
losartan 100 mg tablet 100 mg PO DAILY Blood Pressure 09/03/24
metformin 500 mg tablet 500 mg PO BID Diabetes 09/03/24
semaglutide 1 mg/dose (4 mg/3 mL) subcutaneous pen injector (Ozempic) 1 mg SC SA Diabetes 09/03/24
tiotropium 2.5 mcg-olodaterol 2.5 mcg/actuation mist for inhalation (Stiolto Respimat) 2 puff inhalation DAILY Lung/Breathing Issues 09/03/24
pantoprazole 40 mg tablet,delayed release (Protonix) 40 mg PO DAILY Gastrointestinal issue #0 tabs 01/23/25
atorvastatin 20 mg tablet (Lipitor) 20 mg PO DAILY High cholesterol 03/25/25
furosemide 20 mg tablet (Lasix) 20 mg PO DAILY Fluid retention/Swelling 03/25/25
Medications Reviewed: Yes
Allergies and Reactions
Patient has Allergies: Yes
Noted Allergies and Reactions:
Allergy/AdvReac Type Severity Reaction Status Date / Time
oxycodone AdvReac Hallucinati Verified 03/28/25 07:55
ons
Pertinent Physical Exam
All Other Systems: Negative
Head/Neck: Normal
Diagnosis / Assessment
This is a 64-year-old female who presents with biliary colic.
Plan / Procedure
Will plan for laparoscopic cholecystectomy with cholangiogram.
Anesthesia/Sedation to be done by Anesthesia Provider: Yes
--- NOTE | 2025-03-28 11:08 | W.IMMPOSTOP ---
Surgical Immed Post Op Note
-
Primary Surgeon: Ton Bryan MD
Assisting Surgeon: None
Pre-op Diagnosis: Biliary colic
Post-op Diagnosis: Biliary colic, choledocholithiasis
Procedure Performed:
1. Laparoscopic cholecystectomy with cholangiogram
2. Laparoscopic transcystic common bile duct exploration
Anesthesia Type: General
Specimen / Cultures: Gallbladder and contents
Estimated Blood Loss: 7 cc
Complications: None
Operative Findings: Long floppy gallbladder, dilated cystic and common bile ducts. Critical view of safety obtained prior to a cholangiogram which demonstrated nonocclusive but large filling defects in the distal CBD which persisted despite
administration of glucagon. The cholangiocatheter was advanced into the duodenum under fluoroscopy and the stone was successfully pushed into the duodenum. No residual filling defect was noted on the final cholangiogram. The duct was ligated with
a clip followed by 0 PDS Endoloop.
--- NOTE | 2025-03-28 11:12 | OR.RPT ---
Operative Report
Operative Report
Patient Name: Katherine De Paz
: 1960
Date of Operation: 03/28/2025
Preoperative Diagnosis: Biliary colic
Postoperative Diagnosis: Biliary colic, choledocholithiasis
Procedure(s):
Laparoscopic lysis of adhesions (15 minutes)
Laparoscopic Cholecystectomy with Cholangiogram
Laparoscopic transcystic common bile duct exploration
Surgeon(s):
Dr. Bryan
Support Representative(s):
SHUBHAM Menjivar
Anesthesia: General
Estimated Blood Loss: 7 cc
Urine Output: None
Drains/Lines/Implants: None
Specimens:
1. Gallbladder and contents
HPI/Surgical Indications:
This is a 64-year-old female with a history of a laparoscopic sleeve gastrectomy with a fairly significant vertical midline who presented to my office with complaints of postprandial right upper quadrant abdominal pain. Exam, labs and imaging were
consistent with biliary colic. Risks/Benefits/Alternatives were discussed at length, and the patient agreed to proceed with surgery.
Operative Findings: Long floppy gallbladder, dilated cystic and common bile ducts. Critical view of safety obtained prior to a cholangiogram which demonstrated nonocclusive but large filling defects in the distal CBD which persisted despite
administration of glucagon. The cholangiocatheter was advanced into the duodenum under fluoroscopy and the stone was successfully pushed into the duodenum. No residual filling defect was noted on the final cholangiogram. The duct was ligated with
a clip followed by 0 PDS Endoloop.
Procedure Description:
The patient was brought to the Operating Room and placed in the supine position with one arm tucked. Following uneventful induction of general endotracheal anesthesia, an orogastric tube was placed. The abdomen was prepped and draped in the usual
sterile fashion. A timeout was performed confirming the procedure, consent, and that IV antibiotics were infused and sequential compression devices were confirmed to be on. The abdomen was entered using a left subcostal Veress technique which
required a single pass followed by a 5 mm right upper quadrant Optiview trocar. Pneumoperitoneum to 15 mmHg pressure was obtained without difficulty and we confirmed that no injury had occurred during our entry, however we did encounter a
significant amount of diffusions preventing review of the gallbladder thus an extra 5 mm port was placed in the left upper quadrant and a laparoscopic bipolar energy device was used to take down these adhesions which took roughly 15 minutes. The
transverse colon and stomach were not injured. Once we had a good view of the gallbladder, the patient was positioned in reverse Trendelenberg and rotated with the right side up slightly. Two 5 mm trocars were then placed along the right subcostal
margin, followed by a 12 mm port in the epigastrium. A locking grasping forceps was placed on the fundus of the gallbladder where it was then retracted cephalad and to the right. Using appropriate grasping instruments, the peritoneum overlying the
triangle of Calot was incised and extended superiorly on both the anterior and posterior gallbladder tan. The infundibulum was dissected off the cystic plate. The cystic triangle was dissected until a critical view of safety was achieved. The
cystic artery was medialized, dissected and controlled with 2 proximal clips and 1 distal. The cystic duct/gallbladder junction in turn was identified, dissected circumferentially and a clip was placed. A ductotomy was made and a cholangiocatheter
on an Anna clamp was inserted into the cystic duct. A C-arm was draped and brought into the field. An intra-operative cholangiogram was performed and was noted to have:
Nonocclusive filling defects in the biliary tree
Moderate biliary dilation
Sluggish flow of contrast into the duodenum
Normal biliary anatomy
1 mg of glucagon was administered but a repeat cholangiogram demonstrated residual filling defects. The cholangiocatheter was carefully advanced under fluoroscopic guidance into the duodenum successfully advancing some of the presumed sludge/stone
along with it. No residual stone/filling defect was identified on final cholangiogram, and the flow into the duodenum was brisk. The catheter was then removed and the cystic duct was controlled with a clip followed by 0 PDS Endoloop. After
ensuring both the artery and duct were divided, the gallbladder was freed from the liver using electrocautery. There was some spillage of bile from the bar ductotomy, but no spillage of stones. The gallbladder bed was inspected and excellent
hemostasis was obtained. The gallbladder was extracted through the 12 mm trocar site using an endocatch bag. The abdomen was again irrigated and excellent hemostasis was assured. There was a small tear in the capsule of the liver at the insertion
of the falciform ligament due to adhesions tethering it to the stomach. This was cauterized and Surgiflo was applied over this and the surgical bed. All remaining trocars were then removed and the pneumoperitoneum was evacuated. The 12 mm trocar
site was closed using 0 PDS suture. All trocar sites were closed at the skin level using 4-0 Monocryl followed by Dermabond. Overall, the patient tolerated the procedure well and was taken to the Recovery Room postoperatively in stable condition.
I was the attending physician and performed the procedure with assistance of the PA above. The assistance of SHUBHAM Menjivar was required due to the complexity of the procedure. During the procedure Chasidy assisted with port placement, tissue
retraction, resection, and closure of the wound. I was present for all portions of the case.
Ton Bryan MD
[2025-03-28 11:37] LABS: Glucose - Point of Care 191 mg/dl (70-99)
[2025-03-28] MEDS: DILAUDID 0.25 MG IV ×2 (11:45→12:08)
[2025-03-28] MEDS: TYLENOL 650 MG PO (14:07)
== END 2025-03-28 14:26 | disposition home or self-care (01) ==
LOC: SDS 06:14
PROVIDERS: ATTENDING PHYSICIAN Surgery
DX: K80.10 Calculus of gallbladder with chronic cholecystitis without obstruction (principal)
CPT/HCPCS: 47563; 74300; 76000; 82962; 88304; A4300; J1610

== ENCOUNTER → 2025-05-14 10:04 | Outpatient (REF) | payer MEDICARE, SELFPAY | LOC: HWRAD 10:04 | PROVIDERS: ATTENDING PHYSICIAN Internal Medicine | DX: M81.0 Age-related osteoporosis without current pathological fracture (principal) | CPT/HCPCS: 77080 ==